=== PATIENT | male | born 1935 | race Hispanic/Latino ===

== ENCOUNTER 2017-04-24 14:03 | Inpatient (IN) | payer MEDICARE, OTHER ==
[2017-04-24 14:04] VITALS: BMI 27.4
--- NOTE | 2017-04-24 14:45 | ED PDOC ---
Arrival/HPI - General Historian: Patient - History of Present Illness Time/Duration: Prior to Arrival, > week Symptom Onset: Gradual Symptom Course: Worsening Severity Level: Moderate Activities at Onset: Rest Context: Sitting - General Chief Complaint: Shortness Of Breath Time Seen by Provider: 04/24/17 14:12 - History of Present Illness Narrative History of Present Illness (Text): 04/24/17 14:40 This is a 81 yo male with past medical hx of MS, CVA, HLD presenting with chief complaint of shortness of breath. This has been going on for 2 weeks. It has been happening at rest. It has come on gradually. Pt sees Dr. Kraft as PMD. This is the first time he is seeking medical attention in the past 2 weeks. It was getting worse today so he decided to come in today. This has never happened before. Pt says he "cannot take a deep breath." Pt reports waking up in the middle of night gasping for air, as well as orthopnea. He uses 2 pillows behind his head at night. Denies trauma, fevers, chills, cough, chest pain, palpitations. Denies getting flu shot this year. Cannot say whether or not he has gotten pneumonia shot. Pt drove himself to the hospital. PMH: MS, CVA, HLD PSH: hernia, stent Allergies: NKDA FH: denies Home meds: isosorbide Social hx: current cigar smoker. former cigarette smoker. social drinker[place] Lives [place]. 04/24/17 15:10 (Saulo Rosen) Past Medical History - Provider Review Nursing Documentation Reviewed: Yes - Travel History Have you recently traveled outside [place] w/in the past 3 mons?: No - Infectious Disease Hx of Infectious Diseases: None - Cardiac Hx Cardiac Disorders: Yes Hx Hypertension: Yes Hx Pacemaker: No - Neurological Hx Dementia: Yes - Hematological/Oncological Hx Blood Transfusions: No Hx Blood Transfusion Reaction: No - Musculoskeletal/Rheumatological Hx Musculoskeletal Disorders: No - Gastrointestinal Hx Gastrointestinal Disorders: No - Genitourinary/Gynecological Hx Genitourinary Disorders: No - Psychiatric Hx Substance Use: No - Anesthesia Hx Anesthesia: Yes Hx Anesthesia Reactions: No Hx Malignant Hyperthermia: No Family/Social History - Physician Review Nursing Documentation Reviewed: Yes Family/Social History: No Known Family HX Smoking Status: Current Some Days Smoker Hx Alcohol Use: Yes (SOCIALLY) Hx Substance Use: No Hx Substance Use Treatment: No Allergies/Home Meds Allergies/Adverse Reactions: Allergies No Known Allergies Allergy (Verified 06/14/16 14:52) Home Medications: Home Meds Medication Instructions Recorded Confirmed Atorvastatin Calcium [Lipitor] 80 mg PO DAILY 11/24/11 04/24/17 Metoprolol Succinate 100 mg PO DAILY 11/24/11 04/24/17 Review of Systems - Review of Systems Constitutional: absent: Fevers, Night Sweats Eyes: absent: Vision Changes, Photophobia ENT: absent: Hearing Changes, TMJ Pain Respiratory: SOB. absent: Cough Cardiovascular: absent: Chest Pain, Palpitations Gastrointestinal: absent: Abdominal Pain, Stool Changes Genitourinary Male: absent: Dysuria, Frequency Musculoskeletal: absent: Arthralgias, Back Pain Skin: absent: Rash, Pruritis Neurological: absent: Headache, Dizziness Endocrine: absent: Diaphoresis, Polyuria Hemo/Lymphatic: absent: Adenopathy, Easy Bleeding Psychiatric: absent: Anxiety, Depression Physical Exam Appearance: Positive for: Uncomfortable Mental Status: Positive for: Alert and Oriented X 3 - Systems Exam Head: Present: Atraumatic, Normocephalic Pupils: Present: PERRL Extroacular Muscles: Present: EOMI Mouth: Present: Moist Mucous Membranes Respiratory/Chest: Present: Decreased Breath Sounds, Rales Cardiovascular: Present: Regular Rate and Rhythm, Normal S1, S2 Abdomen: Present: Normal Bowel Sounds. No: Tenderness, Peritoneal Signs Upper Extremity: Present: Normal Inspection. No: Cyanosis, Edema Lower Extremity: Present: Normal Inspection. No: Edema Neurological: Present: CN II-XII Intact, Speech Normal Skin: Present: Warm, Dry Psychiatric: Present: Alert, Oriented x 3, Normal Insight, Normal Concentration Vital Signs Temp Pulse Resp BP Pulse Ox 04/24/17 18:03 98.1 F 106 H 22 131/43 L 96 04/24/17 16:04 98.2 F 101 H 20 140/80 92 L 04/24/17 15:44 22 97 04/24/17 14:11 91 H 26 H 151/111 H 90 L Medical Decision Making ED Course and Treatment: I disc the case w Dr Espinosa who will admit. Disc results w the pt as well. (Iron Carrera) - Lab Interpretations Lab Results: 04/24/17 15:10 04/24/17 15:10 Lab Results 04/24/17 15:10: Sodium 140, Potassium 4.8, Chloride 102, Carbon Dioxide 26, Anion Gap 17, BUN 39 H, Creatinine 2.0 H, Est GFR ( Amer) 39, Est GFR ( Non-Af Amer) 32, Random Glucose 103, Calcium 9.6, Total Bilirubin 1.0, AST 38, ALT 21, Alkaline Phosphatase 105, Troponin I 2.90 H* D, NT-Pro-B Natriuret Pep 64971 H, Total Protein 8.1, Albumin 4.0, Globulin 4.0, Albumin/Globulin Ratio 1.0 L 04/24/17 15:10: WBC 9.8 D, RBC 4.97, Hgb 11.1 L, Hct 34.5 L, MCV 69.4 L, MCH 22.3 L, MCHC 32.2, RDW 18.5 H, Plt Count 183, Gran % 73.9 H, Lymph % (Auto) 18.4 L, [place] % (Auto) 6.5 H, Eos % (Auto) 0.7 L, Baso % (Auto) 0.5, Gran # 7.21 H, Lymph # 1.8, [place] # 0.6, Eos # 0.1, Baso # 0.05 - RAD Interpretation Radiology Orders: 04/24/17 14:35 CXR [CHEST PORTABLE] [RAD] Stat - Medication Orders Current Medication Orders: Albuterol/Ipratropium (Duoneb 3 Mg/0.5 Mg (3 Ml) Ud) 3 ml IH Q2H PRN PRN Reason: Shortness of Breath Aspirin (Ecotrin) 81 mg PO DAILY [facility] Atorvastatin Calcium (Lipitor) 80 mg PO HS ANOOP Last Admin: 04/24/17 22:00 Dose: 80 mg Clopidogrel Bisulfate (Plavix) 75 mg PO DAILY ANOOP Furosemide (Lasix) 40 mg IVP Q8 ANOOP Heparin Sodium/Sodium Chloride (Heparin 30258 Units/250ml 1/2 Normal Saline) 25 ,000 units in 250 mls @ 9.046 mls/hr IV .Q24H ANOOP; 12 UNITS/KG/HR PRN Reason: Protocol Last Titration: 04/25/17 07:07 Dose: 14 units/kg/hr, 10.554 mls/hr Titration Intervention Document 04/25/17 07:07 MS (Rec: 04/25/17 07:07 MS [id number]) Titration Intake Titration Intake 130 Cumulative Intake 130 Cumulative Intake (Rx) 130 Waste Amount 0 Container Volume 120 Titration Dosing Titration Dose 14 IV Rate 10.554 Intake/Decrease Increased Cumulative Dose 01446 Milrinone Lactate/Dextrose (Primacor 20mg/100ml D5w) 100 mls @ 7.889 mls/hr IV .[id number] PRN; Protocol; 0.375 MCG/KG/MIN PRN Reason: TITRATE PER MD ORDER Metoprolol Succinate (Toprol Xl) 100 mg PO DAILY ANOOP Last Admin: 04/25/17 10:14 Dose: 100 mg MAR Pulse and Blood Pressure Document 04/25/17 10:14 RDS (Rec: 04/25/17 10:14 RDS [id number]) Pulse Pulse Rate (60-90) 74 Blood Pressure Blood Pressure (100/60-150/90) 141/100 Discontinued Medications Aspirin (Aspirin) 325 mg PO STAT STA Stop: 04/24/17 15:03 Last Admin: 04/24/17 15:20 Dose: 325 mg Clopidogrel Bisulfate (Plavix) 300 mg PO STAT STA Stop: 04/25/17 10:30 Furosemide (Lasix) 40 mg IVP BID [facility] Heparin Sodium (Porcine) (Heparin) 4,000 units IV ONCE ONE PRN Reason: Protocol Stop: 04/24/17 16:18 Last Admin: 04/24/17 17:39 Dose: 4,000 units eMAR Start Stop Document 04/24/17 17:39 RG (Rec: 04/24/17 17:39 RG [id number]) Intravenous Solution Start Date 04/24/17 Start Time 17:39 End Date 04/24/17 End time 17:39 Total Infusion Time 0 Heparin Sodium (Porcine) (Heparin) 3,000 units IVP STAT STA PRN Reason: Protocol Stop: 04/25/17 07:06 Last Admin: 04/25/17 07:12 Dose: 3,000 units IVP Administration Document 04/25/17 07:12 MS (Rec: 04/25/17 07:12 MS [id number]) Charges for Administration # of IVP Administrations 1 Metoprolol Tartrate (Lopressor) 50 mg PO ONCE ONE Stop: 04/24/17 19:01 Last Admin: 04/24/17 19:00 Dose: 50 mg MAR Pulse and Blood Pressure Document 04/24/17 19:00 RT (Rec: 04/24/17 19:00 RT [id number]) Pulse Pulse Rate (60-90) 99 Blood Pressure Blood Pressure (100/60-150/90) 147/94 Disposition/Present on Arrival - Present on Arrival Any Indicators Present on Arrival: No History of DVT/PE: No History of Uncontrolled Diabetes: No Urinary Catheter: No History of Decub. Ulcer: No History Surgical Site Infection Following: None - Disposition Have Diagnosis and Disposition been Completed?: Yes Disposition Time: 17:00 Patient Plan: Admission - Disposition Diagnosis: NSTEMI (non-ST elevated myocardial infarction) Disposition: HOSPITALIZED Condition: STABLE
--- NOTE | 2017-04-24 15:34 | RAD ---
HISTORY: sob COMPARISON: 06/11/2016 FINDINGS: LUNGS: No active pulmonary disease. PLEURA: There is a small right pleural effusion. CARDIOVASCULAR: Mild cardiomegaly and aortic tortuosity OSSEOUS STRUCTURES: No significant abnormalities. VISUALIZED UPPER ABDOMEN: Normal. OTHER FINDINGS: None. IMPRESSION: Small right pleural effusion.
[2017-04-24 15:37] LABS: BASO # 0.05 K/mm3 (0.0-2.0); BASO % 0.5 % (0.0-3.0); EOS # 0.1 (0.0-0.7); EOS % 0.7 % (1.5-5.0); GRAN # 7.21 (1.4-6.5); GRAN % 73.9 % (50.0-68.0); HEMATOCRIT 34.5 % (42.0-52.0); LYMPH # 1.8 (1.2-3.4); LYMPH % 18.4 % (22.0-35.0); MEAN CELL VOLUME 69.4 fl (80.0-105.0); MEAN CORPUSCULAR HEMOGLOBIN 22.3 pg (25.0-35.0); MEAN CORPUSCULAR HGB CONC 32.2 g/dl (31.0-37.0); MONO # 0.6 (0.1-0.6); MONO % 6.5 % (1.0-6.0); PLATELET COUNT 183 10^3/uL (120.0-450.0); RED CELL DISTRIBUTION WIDTH 18.5 % (11.5-14.5); WHITE BLOOD COUNT 9.8 10^3/ul (4.5-11.0)
[2017-04-24 15:41] LABS: CALCIUM 9.6 mg/dL (8.4-10.5); POTASSIUM 4.8 mmol/L (3.6-5.0); TOTAL PROTEIN 8.1 g/dL (5.8-8.3)
[2017-04-24 16:24] LABS: TROPONIN I 2.9 ng/mL
[2017-04-24] MEDS ORDERED: Heparin 25,000units in D5W 25,000 UNITS/250 ML BAG IV SCH (16:30)
[2017-04-24] MEDS: Heparin25000 units/250ml 1/2NS 25,000 UNITS/250 ML BAG IV SCH (17:39)
[2017-04-25 06:42] LABS: HEMATOCRIT 36.2 % (42.0-52.0); MEAN CELL VOLUME 69.9 fl (80.0-105.0); MEAN CORPUSCULAR HGB CONC 31.5 g/dl (31.0-37.0); PLATELET COUNT 184 10^3/uL (120.0-450.0); RED CELL DISTRIBUTION WIDTH 18.7 % (11.5-14.5); WHITE BLOOD COUNT 8.4 10^3/ul (4.5-11.0)
[2017-04-25 07:05] LABS: TROPONIN I 2.44 ng/mL
[2017-04-25 07:09] LABS: CALCIUM 9.5 mg/dL (8.4-10.5); MAGNESIUM 2.3 mg/dL (1.7-2.2); PHOSPHOROUS 5.8 mg/dL (2.5-4.5); POTASSIUM 5.2 mmol/L (3.6-5.0); TOTAL PROTEIN 7.9 g/dL (5.8-8.3)
--- NOTE | 2017-04-25 07:40 | CARD ---
APPROVED REPORT EKG Measurement Heart [id number] P38 [id number] <Conclusion> Atrial flutter with variable AV block with premature ventricular or aberrantly conducted complexes Right bundle branch block Abnormal ECG
--- NOTE | 2017-04-25 07:41 | CARD ---
APPROVED REPORT EKG Measurement Heart [id number] 170P30 [id number] <Conclusion> Sinus tachycardia with frequent premature ventricular complexes Possible Left atrial enlargement Right bundle branch block T wave abnormality, consider inferolateral ischemia Abnormal ECG
[2017-04-25] MEDS ORDERED: Albuterol-Ipratrop 3 mg / 0.5 (3 ml) UD IH PRN (08:45)
[2017-04-25] MEDS: Metoprolol Succinate 50 mg XL Tab PO SCH (10:14)
[2017-04-25] MEDS ORDERED: Milrinone 20mg/100ml D5W 100 ML IV PRN (10:30)
[2017-04-25] MEDS: Milrinone 20mg/100ml D5W 100 ML IV PRN ×2 (11:33→23:39)
--- NOTE | 2017-04-25 12:35 | HP ---
HISTORY OF PRESENT ILLNESS: This is a 81-year-old male who is coming to the hospital with complaints of shortness of breath with exertion. The patient denies any headache or dizziness. He has a history of dyslipidemia. He has a history of coronary catheterization, hypertension, and CVA. He had a stent that was placed in the past. He says he has been having 2 weeks of shortness of breath. It has been getting worse, and at times, it is at rest. He says he has been using more pillows at night to try to help him sleep. He has paroxysmal nocturnal dyspnea. He has no fevers or chills. No nausea. No vomiting. No chest pain. No weakness in the arms or the legs. No dysuria or frequency. REVIEW OF SYSTEMS: All other review of symptoms are within normal limits except what was mentioned. ALLERGIES: HE HAS NO KNOWN DRUG ALLERGIES. HOME MEDICATIONS: Aspirin, Lipitor, isosorbide, and metoprolol. PAST MEDICAL HISTORY: Coronary artery disease with stenting, CVA, dyslipidemia, and SD. PAST SURGICAL HISTORY: Hernia repair. FAMILY HISTORY: Noncontributory. SOCIAL HISTORY: He is a former smoker, but does not smoke anymore. He drinks socially. He lives alone. Does have son and daughter, but they are not living locally. PHYSICAL EXAMINATION: VITAL SIGNS: Temperature is 97.7, pulse is 76, blood pressure 112/86, and respirations 22. Height is 5 feet 6 inches. Weight is 170 pounds. BMI is 27.4. GENERAL: The patient lying in bed, uncomfortable, and in no acute distress. HEENT: Atraumatic and normocephalic. Anicteric sclerae. Moist mucosa. [place] conjunctivae. No oral lesions. NECK: No JVD, anterior and posterior adenopathy, thyromegaly, or bruits. CARDIOVASCULAR: S1 and S2 regular. No murmur, rubs, or gallop. LUNGS: Clear to auscultation bilaterally. No wheezes, rales, or rhonchi. ABDOMEN: Bowel sounds are positive. Soft, nontender and nondistended. No hepatosplenomegaly. No rebound and no guarding. EXTREMITIES: No cyanosis, clubbing, or edema. NEUROLOGIC: No facial asymmetry. Tongue is midline. No uvula deviation. Power is 5/5 upper extremity and lower extremity. Sensation intact in upper extremity and lower extremity. PSYCHIATRIC: He is awake, alert and oriented x3. No anxiety or depression. He has normal affect. GENITOURINARY: No CVA tenderness. VASCULAR: 2+ pulses in the carotid pulses and pedal pulses. SKIN: No erythema or nodules. SPINE: Shows normal curvature. EXTREMITIES: No cyanosis and clubbing, no edema. LABORATORY DATA: White count of 9.8, hemoglobin is 11.1, and platelet count is 183. PTT is 61, repeat is 46. The patient's creatinine is 2.0, baseline is 1.3 in May 2016. ProBNP is 23,000 and LDL is 107. Chest x-ray done, showed small right pleural effusion. His EKG done, shows sinus tachycardia with PVCs, right bundle-branch block. ASSESSMENT: 1. Acute congestive heart failure, unknown type. 2. Coronary artery disease with stenting. 3. Dyslipidemia. 4. Hypertension. PLAN: The patient is currently comfortable. He is going to be admitted to the hospital. He has been started on IV diuretic therapy. He has an elevated troponin. He has been placed on aspirin. He is going to continue with the aspirin and metoprolol. I will get Dr. Perkins to see the patient. We will wait for the input. Echo has been ordered as well. Charnajit Espinosa MD
[2017-04-25] MEDS: Heparin25000 units/250ml 1/2NS 25,000 UNITS/250 ML BAG IV SCH (18:00)
--- NOTE | 2017-04-25 21:03 | CON ---
DATE: 04/25/2017 REASON FOR CONSULTATION AND FOLLOWUP: Shortness of breath, decompensated congestive heart failure, non-ST segment myocardial infarction, acute coronary syndrome. BRIEF CLINICAL HISTORY: A 81-year-old male with past medical history significant for coronary artery disease, CVA, hypertension, hyperlipidemia, coronary artery disease, stent in the past, came in with a 1-week history of a shortness of breath and he fell down backward, came to the emergency room and now the patient complains of shortness of breath, found to be elevated troponin and elevated BUN and creatinine. Denies any chest pain, but complains of shortness of breath, sitting in the chair, is too short of breath. PAST MEDICAL HISTORY: Past history significant for coronary artery disease, hypertension, hyperlipidemia, stent multiple years ago, noncompliance with the medications. Previous cardiac workup as follows, the patient had a stress test on 03/04/2015 and that shows probably abnormal myocardial perfusion study, ejection fraction 49%. The patient refused CAT in the past. CURRENT MEDICATIONS: The patient is on metoprolol succinate 100 mg, atorvastatin 80 mg daily, noncompliant patient. ALLERGIES: NO KNOWN DRUG ALLERGIES. REVIEW OF SYSTEMS: As per HPI. PHYSICAL EXAMINATION: As follows: VITAL SIGNS: Temperature afebrile, heart rate 74, blood pressure 112/86. HEENT: PERRLA intact. NECK: Supple. No carotid bruits or thyromegaly. CHEST: Clear to auscultation. HEART: S1 and S2 regular. ABDOMEN: Soft. EXTREMITIES: Clubbing and cyanosis negative. DIAGNOSTIC DATA: EKG shows normal sinus, right bundle-branch block, no acute ST-T changes noted. LABORATORY DATA: Blood workup as follows: WBC 8.4, hemoglobin 11.4, hematocrit 36.2, platelet count 184. Chemistry shows sodium 138, potassium 5.2, chloride of 45, carbon dioxide of 27, anion gap of 13, BUN 13, creatinine 2.8, 2.6, 2.9, 2.4. IMPRESSION: Acute kidney injury; chronic renal insufficiency; hypertension; hyperlipidemia; coronary artery disease, status post a stent; congestive heart failure; pulmonary edema; renal insufficiency; non-ST segment myocardial infarction; coronary artery disease. RECOMMENDATIONS: Start low dose of Primacor. Continue aggressive diuresis, aspirin, Plavix, treat his unstable angina. Lovenox one dose. If the renal function improves, possible cardiac catheterization tomorrow. Discussed with the patient. The patient will proceed for cardiac. Further recommendation as per hospital course. The patient is already on heparin. We will keep n.p.o. after midnight for possible cardiac catheterization tomorrow. If renal function remains stable, he will get echo to assist LV function. Further recommendation as per hospital course. We will follow with you. Mike Perkins MD
[2017-04-25 22:34] LABS: URINE BILIRUBIN NEGATIVE (NEGATIVE); URINE BLOOD NEGATIVE (NEGATIVE); URINE GLUCOSE (UA) NEGATIVE (NEGATIVE); URINE KETONE NEGATIVE (NEGATIVE); URINE LEUKOCYTE ESTERASE NEGATIVE Leu/uL (NEGATIVE); URINE PROTEIN NEGATIVE mg/dL (<30 mg/dL); URINE UROBILINOGEN 0.2 E.U./dL (<1 E.U./dL)
[2017-04-25 22:37] LABS: URINE APPEARANCE CLEAR (CLEAR); URINE COLOR YELLOW (YELLOW)
[2017-04-25 22:49] LABS: PH,URINE 5.5 (4.7-8.0)
[2017-04-26 08:02] LABS: TROPONIN I 1.55 ng/mL
[2017-04-26 08:15] LABS: ALB/GLOB RATIO 0.9 (1.1-1.8); BILIRUBIN,TOTAL 0.7 mg/dL (0.2-1.3); CALCIUM 8.9 mg/dL (8.4-10.5); POTASSIUM 3.4 mmol/L (3.6-5.0)
--- NOTE | 2017-04-26 09:06 | CARD ---
APPROVED REPORT EXAM: Two-dimensional and M-mode echocardiogram with Doppler and color Doppler. INDICATION NSTEMI, NEW ONSET CHF 2D DIMENSIONS Left Atrium (2D)5.0 (1.6-4.0cm)IVSd0.9 (0.7-1.1cm) LVDd6.0 (3.9-5.9cm)PWd1.0 (0.7-1.1cm) LVDs5.5 (2.5-4.0cm)FS (%) 9.8 % LVEF (%)21.0 (>50%) M-Mode DIMENSIONS Aortic Root3.60 (2.2-3.7cm)Aortic Cusp Exc.1.30 (1.5-2.0cm) Aortic Valve AoV Peak Qenykqxl977.0cm/sAoV VTI28.2cmAO Peak GR.8mmHg LVOT Peak Odwrkxkv85.2cm/sLVOT VTI14.70cmAO Mean GR.5mmHg Mitral Valve MV E Erkxqagq934.0cm/sMV A Tabkrjud23.8cm/sE/A ratio1.4 TDI Lateral E' Peak V6.14cm/sMedial E' Peak V7.41cm/sE/Lateral E'21.3 E/Medial E'17.7 Pulmonary Valve PV Peak Xzfxcvoa43.4cm/sPV Peak Grad.1mmHg Tricuspid Valve TR Peak Lbikmgsj001tx/sRAP SEBCLQHC55ddTyQQ Peak Gr.40mmHg [id number] LEFT VENTRICLE The Left Ventricle is mildly dilated. There is normal left ventricular wall thickness. Left ventricle systolic function is severely impaired. The Ejection Fraction is 20-25%. There is severe global hypokinesis. RIGHT VENTRICLE The right ventricle is normal size. ATRIA The left atrium is moderately dilated. The right atrium size is normal. The interatrial septum is intact with no evidence for an atrial septal defect. AORTIC VALVE The aortic valve is moderately calcified. There is trace aortic regurgitation. MITRAL VALVE The mitral valve is mildly thickened but opens well. Mitral annular calcification is moderate. Mitral regurgitation is mild to moderate. TRICUSPID VALVE The tricuspid valve is normal in structure. There is moderate tricuspid regurgitation. There is moderate-severe pulmonary hypertension. GREAT VESSELS The aortic root is normal in size. PERICARDIAL EFFUSION There is no pericardial effusion. <Conclusion> The Left Ventricle is mildly dilated. There is normal left ventricular wall thickness. Left ventricle systolic function is severely impaired. The Ejection Fraction is 20-25%. There is severe global hypokinesis. The aortic valve is moderately calcified. Aortic sclerosis vs. mild There is trace aortic regurgitation. Mitral regurgitation is mild to moderate. There is moderate tricuspid regurgitation. There is moderate-severe pulmonary hypertension.
[2017-04-26] MEDS: Metoprolol Succinate 50 mg XL Tab PO SCH (10:09)
[2017-04-26] MEDS ORDERED: Potassium Chloride 20 mEq ER Tab PO ONE (14:03)
[2017-04-26] MEDS: Milrinone 20mg/100ml D5W 100 ML IV PRN (14:40)
--- NOTE | 2017-04-26 16:16 | US ---
PROCEDURE: Ultrasound of the Kidneys HISTORY: ARF COMPARISON: 11/03/2016 TECHNIQUE: Grayscale imaging was performed. FINDINGS: RIGHT KIDNEY: Measures: 9.4 cm. Normal in size, contour and echogenicity. No stone, solid mass lesion or hydronephrosis visualized. There is a new 1.8 x 1.4 x 1.5 cm simple cyst in the upper lobes. There is interval mild decrease in size of known septated cyst in the lower pole which now measures 1.1 x 0.9 x 1.0 cm. LEFT KIDNEY: Measures: 11.4 cm. Normal in size, contour and echogenicity. No stone, solid mass lesion or hydronephrosis visualized. OTHER FINDINGS: None. IMPRESSION: No nephrolithiasis or hydronephrosis.
[2017-04-26] MEDS: Heparin25000 units/250ml 1/2NS 25,000 UNITS/250 ML BAG IV SCH (18:00)
--- NOTE | 2017-04-26 19:06 | PN ---
DATE: 04/26/2017 SUBJECTIVE: The patient has no complaints of any chest pain. He says he is breathing better, but does feel the short of breath after exertion. PHYSICAL EXAMINATION: VITAL SIGNS: Temperature is 98.1, pulse of 82, blood pressure is 115/70, respirations 20. GENERAL: The patient is lying in bed, flat, comfortable. HEENT: No oral lesion. Anicteric sclerae. Moist mucosa. NECK: No JVD, adenopathy, or thyromegaly. CARDIOVASCULAR: S1 and S2, regular. No murmurs, rubs, or gallops. LUNGS: Clear to auscultation bilaterally. No wheeze, rales, or rhonchi. ABDOMEN: Bowel sounds are positive, soft, nontender, and nondistended. EXTREMITIES: No cyanosis, clubbing or edema. LABORATORY DATA: White count of 8.4 and hemoglobin 11.4. Creatinine is 2.4. Echocardiogram done, shows LV is mildly dilated, EF is 20% to 25%. There is moderate calcified aortic sclerosis versus mild . There is moderate tricuspid regurgitation, gudvsmbz-wz-ahntuh pulmonary hypertension. ASSESSMENT: 1. Acute congestive heart failure secondary to systolic dysfunction with an ejection fraction of 20%to 25%. 2. Tricuspid regurgitation. 3. Pulmonary hypertension. 4. Coronary artery disease with stenting. 5. Dyslipidemia. 6. Hypertension. 7. Yhm-XO-dnlbheguu myocardial infarction. PLAN: The patient is currently comfortable. He says his breathing is better. He had a UA that shows no protein. The patient's lxtlcbd-qa-auqriwcstx ratio was done, proteinuria of 300 mg per day. He is going to continue on Aldactone for CHF. He is on heparin daily. The patient is on Lasix twice day. He is on Lipitor for dyslipidemia. He is also on milrinone. The patient is on metoprolol for his coronary artery disease as well as aspirin. I will get a renal ultrasound because the patient's creatinine is elevated. I suspect if he may have underlying chronic kidney disease, although his last creatinine in May of this year was 1.3. I will also get serology testing. Charanjit Espinosa MD
--- NOTE | 2017-04-26 21:20 | PN ---
DATE: 04/26/2017 REASON FOR CONSULTATION: Followup shortness of breath, decompensated congestive heart failure, non-ST segment myocardial infarction, acute coronary syndrome. SUBJECTIVE: The patient denies any chest pain, shortness of breath or any palpitation. Feels a lot better. Lying flat on the bed. Had a good diuresis almost 600 negative fluid balance. PHYSICAL EXAMINATION: VITAL SIGNS: Temperature afebrile, heart rate 82, blood pressure 115/70. HEENT: PERRLA. Extraocular muscles intact. NECK: Supple. No carotid bruit or thyromegaly. CHEST: Clear to auscultation. HEART: S1, S2 regular. ABDOMEN: Soft. EXTREMITIES: Clubbing and cyanosis negative. LABORATORY DATA: Blood workup as follows, WBC 8.4, hemoglobin 11.6, hematocrit 36.2, platelet count 184. Chemistry shows sodium 139, potassium 3.4, chloride 102, carbon dioxide 29, anion gap of 11, BUN 47, creatinine 2.4. Troponin trending down 1.55. The patient had echocardiography done yesterday read by Dr. Alexandre, shows ejection fraction of 25% while the patient is on Primacor 2 mcg, 20% to 25% severe global hypokinesis, aortic valve with moderately calcified, trace aortic regurgitation, yhgq-iy-rsjxepgo mitral regurgitation, moderate tricuspid regurgitation, RV systolic pressure of 50. IMPRESSION: Acute decompensated congestive heart failure, acute non-ST segment myocardial infarction, coronary artery disease, history of stent in the past, tobacco abuse, acute kidney injury, chronic renal insufficiency, hypokalemia. RECOMMENDATIONS: Continue diuresis. Cancel cardiac catheterization, to resume diet. Continue heparin. Continue Primacor. Cut down the Lasix to q.12. Follow the renal function, if the renal function remained stable, then we will cath tomorrow. Continue heparin. The patient is on heparin, we will discontinue heparin for 2 hours at 1:00 a.m. and possible cardiac catheterization tomorrow. If the renal function gets worse, we will hold the cardiac catheterization tomorrow, otherwise we will do the cardiac catheterization tomorrow. Thank you Dr. Espinosa for providing us the opportunity in taking care of the patient, Jaime Dudley. We will resume diet. Keep n.p.o. after 12 midnight. Mike Perkins MD cc: Dr. Espinosa.
[2017-04-27] MEDS: Milrinone 20mg/100ml D5W 100 ML IV PRN ×2 (03:52→19:26)
[2017-04-27 06:38] LABS: BASO # 0.05 K/mm3 (0.0-2.0); BASO % 0.8 % (0.0-3.0); EOS # 0.3 (0.0-0.7); EOS % 4.7 % (1.5-5.0); GRAN # 3.86 (1.4-6.5); HEMATOCRIT 32.5 % (42.0-52.0); LYMPH # 1.6 (1.2-3.4); LYMPH % 24.8 % (22.0-35.0); MEAN CELL VOLUME 70.3 fl (80.0-105.0); MEAN CORPUSCULAR HEMOGLOBIN 21.9 pg (25.0-35.0); MEAN CORPUSCULAR HGB CONC 31.1 g/dl (31.0-37.0); MONO # 0.6 (0.1-0.6); MONO % 8.7 % (1.0-6.0); PLATELET COUNT 195 10^3/uL (120.0-450.0); RED CELL DISTRIBUTION WIDTH 18.8 % (11.5-14.5); WHITE BLOOD COUNT 6.3 10^3/ul (4.5-11.0)
[2017-04-27] MEDS ORDERED: Phenylephrine 10 mg/ml Inj ONE (07:28)
[2017-04-27] MEDS ORDERED: Lidocaine 2% Inj (20ml) ONE (07:28)
[2017-04-27] MEDS ORDERED: Iodixanol 320 MG/ML 100 ML BOTTLE IV ONE (07:29)
[2017-04-27] MEDS ORDERED: Iodixanol 320 MG/ML 200 ML BOTTLE IV ONE (07:29)
[2017-04-27] MEDS ORDERED: Iohexol 350mgl/ml 50 ML ONE (07:29)
[2017-04-27] MEDS ORDERED: Sodium Bicarbonate (8.4%) 50 Meq Syringe ONE (07:33)
[2017-04-27 07:38] LABS: ALB/GLOB RATIO 0.9 (1.1-1.8); BILIRUBIN,TOTAL 0.5 mg/dL (0.2-1.3); CALCIUM 9.1 mg/dL (8.4-10.5); MAGNESIUM 1.8 mg/dL (1.7-2.2); PHOSPHOROUS 3.9 mg/dL (2.5-4.5); POTASSIUM 3.7 mmol/L (3.6-5.0); TOTAL PROTEIN 6.9 g/dL (5.8-8.3); URIC ACID 11.1 mg/dL (3.5-8.5)
[2017-04-27] MEDS ORDERED: Midazolam 2 MG/2 ML VIAL ONE (08:11)
[2017-04-27] MEDS ORDERED: Levalbuterol 0.63 MG/3 ML Inhal Soln UD IH PRN (08:56)
[2017-04-27] MEDS ORDERED: Sodium Bicarbonate 8.4% 130 MEQ in Dextrose 5% In Water 1,000 ML IV SCH (09:00)
--- NOTE | 2017-04-27 09:17 | CARD ---
APPROVED REPORT Procedure(s) performed: Abdominal aortogram HISTORY The patient is a 81 year-old male with a history of : Hsx of CAD, PAD, CKD S/p PTCA of coronaries and Right renal Stent active tobacco abuse admitted with NSTEMI and CHF. INDICATION The indication(s) include : non-STEMI . CASE TECHNIQUE The patient was brought electively to the Cardiac Catheterization Laboratory in a fasting state and was prepped and draped in a sterile manner. The right femoral groin was infiltrated with 2% Lidocaine subcutaneous anesthesia. A 23 cm long sheath placed sheath was inserted into the right femoral artery without difficulty. Coronary angiography was performed using coronary diagnostic catheters. Pre-demployment femoral angiogram was performed . Closure device was deployed with a 6 Fr Mynx without any complications. The patient tolerated the procedure well and there were no complications associated with the procedure. Conclusion Only Abdominal Aortogram done, Could not advane catheter above inferior Mesentric artery.Very tortous right femoral, right common Iliac and very tortous Abdomial Aorta like Cork Screw, Stent Noted in right renal artery.Procedure aborted, decided to treat medically, Only 20 cc contrast used. Recommendations Smoking Cessation Aggressive Medical TherapyCardiac Risk Reduction Program ASA and plavix for mandatory four weeks,preferably for extended period of time, followed by Baby ASa alone Nitrates, Beta blockers, Statin, Diuretics ,and Spironolactone, Continue Bicarb Drip for 6 hours, and Primacor for 24 hours. Monitor renal Fx closely. CC; Drs. Hanson/ Swapnil / Francisca.
[2017-04-27] MEDS: Metoprolol Succinate 50 mg XL Tab PO SCH (10:01)
[2017-04-27 12:49] LABS: VITAMIN D 25 OH TOTAL 22.1 NG/ML (30.0-100.0)
--- NOTE | 2017-04-27 13:24 | PN ---
DATE: 04/27/2017 REASON FOR CONSULTATION AND FOLLOWUP: Qxr-GG-aetdipc myocardial infarction, acute decompensated congestive heart failure, coronary artery disease, chronic renal insufficiency. SUBJECTIVE: The patient is a 81-year-old male. The patient denies any chest pain or shortness of breath. The patient was taken to the scientific laboratory supervisor, details as further in assessment portion. OBJECTIVE: GENERAL: Not in apparent distress. VITAL SIGNS: As follows: Temperature afebrile, heart rate 86, blood pressure 128/68. HEENT: PERRLA. Extraocular muscles intact. NECK: Supple. No carotid bruit or thyromegaly. CHEST: Clear to auscultation. HEART: S1, S2 regular. ABDOMEN: Soft. EXTREMITIES: Clubbing and cyanosis negative. LABORATORY DATA: Workup as follows: WBC 6.2, hemoglobin 10.1, hematocrit 32.5, platelet count 195. Chemistry shows sodium 130, potassium 3.7, chloride 101, carbon dioxide 30, anion gap of 11, BUN 44, and creatinine 2.3. IMPRESSION: Btf-OC-wemwogo myocardial infarction, coronary artery disease, history of stent, history of chronic renal insufficiency, history of stent in the left kidney, diabetes, hypertension, hyperlipidemia, active tobacco abuse. The patient had echocardiography done yesterday, read by Dr. Alexandre. There is ejection fraction of 25%. Aortic valve moderately calcified, trace aortic regurgitation, ssis-jd-cojndfvo mitral regurgitation, moderate tricuspid regurgitation, RV systolic pressure of 40. Today, creatinine was 2.3. The patient is on Primacor. The patient was taken to scientific laboratory supervisor. Right femoral access was obtained. Very torturous right femoral artery, long sheath was placed. Then, we decided to go above the renal artery because of very torturous aorta, multiple but cannot proceed further and so procedure was aborted at this time because 20 mL of contrast used. The patient has a baseline creatinine of 2.4. Decision was made to treat the patient medically as follow: 1. Complete cessation of smoking. 2. Aspirin and Plavix for 4 weeks, followed by baby aspirin alone for rest of the life, beta-maia, nitrates, and we will continue bicarb for 6 hours. Follow BUN and creatinine and continue Primacor for 24 hours. If the creatinine remain stable, possible discharge to home tomorrow. Thank you Dr. Kraft/Dr. Espinosa for providing us the opportunity in taking care of the patient. Mike Perkins MD cc: Dr. Francisca Kraft MD
--- NOTE | 2017-04-27 18:15 | PN ---
DATE: 04/27/2017 SUBJECTIVE: The patient has no complaints of any chest pain. No shortness of breath or headache. He states he is breathing better when he goes to the bathroom compare to when he came into hospital. PHYSICAL EXAMINATION: VITAL SIGNS: Temperature is 97.8, pulse is 73, blood pressure is 97/65, respirations 19. GENERAL: The patient is lying in bed, flat, comfortable. HEENT: No oral lesion. Anicteric sclerae. Moist mucosa. NECK: No JVD, adenopathy, or thyromegaly. CARDIOVASCULAR: S1 and S2, regular. No murmurs, rubs, or gallops. LUNGS: Clear to auscultation bilaterally. No wheeze, rales, or rhonchi. ABDOMEN: Bowel sounds are positive, soft, nontender and nondistended. EXTREMITIES: No cyanosis, clubbing or edema. LABORATORY DATA: White count of 6.3, hemoglobin of 10.1. Creatinine is 2.3. ASSESSMENT: 1. Acute congestive heart failure secondary to systolic dysfunction with an ejection fraction of 20% to 25%. 2. Tricuspid regurgitation. 3. Pulmonary hypertension. 4. Coronary artery disease with stenting. 5. Dyslipidemia. 6. Hypertension. 7. Jww-LH-zekuavtuw myocardial infarction. 8. Proteinuria of 300 mg per day. 9. Iron deficiency anemia. PLAN: The patient is going for cardiac cath today by Dr. Perkins. He is going to continue with aspirin. He is on isosorbide for his heart. He is on Plavix for his OK. The patient is on Lipitor for dyslipidemia. The patient is on Xopenex. He is going to continue with heart-healthy diet. I have ordered serology for elevation of his creatinine. The patient does have iron deficiency. The patient possibly will go to Transitional Care Unit once accepted. Charanjit Espinosa MD
[2017-04-28] MEDS: Milrinone 20mg/100ml D5W 100 ML IV PRN (06:02)
[2017-04-28 06:07] LABS: BASO # 0.05 K/mm3 (0.0-2.0); BASO % 0.7 % (0.0-3.0); EOS # 0.3 (0.0-0.7); EOS % 3.7 % (1.5-5.0); GRAN % 63.7 % (50.0-68.0); HEMATOCRIT 34.6 % (42.0-52.0); LYMPH # 1.6 (1.2-3.4); LYMPH % 21.5 % (22.0-35.0); MEAN CELL VOLUME 70.8 fl (80.0-105.0); MEAN CORPUSCULAR HEMOGLOBIN 22.3 pg (25.0-35.0); MEAN CORPUSCULAR HGB CONC 31.5 g/dl (31.0-37.0); MONO # 0.8 (0.1-0.6); MONO % 10.4 % (1.0-6.0); PLATELET COUNT 188 10^3/uL (120.0-450.0); RED CELL DISTRIBUTION WIDTH 19.1 % (11.5-14.5); WHITE BLOOD COUNT 7.2 10^3/ul (4.5-11.0)
[2017-04-28 06:11] LABS: TOTAL PROTEIN, SERUM 6.5 g/dL (6.1-8.1)
[2017-04-28 06:19] LABS: CALCIUM 9.4 mg/dL (8.4-10.5)
[2017-04-28] MEDS: Metoprolol Succinate 50 mg XL Tab PO SCH (09:48)
[2017-04-28 11:40] VITALS: O2SAT 96
[2017-04-28 12:16] VITALS: BP 145/87; RESP 20; TEMP 98.3
--- NOTE | 2017-04-28 14:47 | PN ---
DATE: 04/27/2017 REASON FOR CONSULTATION: Followup tnn-QU-mgwocrp myocardial infarction, acute decompensated congestive heart failure, coronary artery disease, renal insufficiency chronic, status post cardiac catheterization attempted, unable to because of that tortuosity of the aorta. SUBJECTIVE: The patient denies any chest pain, shortness of breath, or any palpitation. PHYSICAL EXAMINATION: GENERAL: Not in apparent distress. Lying flat in the bed. VITAL SIGNS: As follows, temperature afebrile, heart rate 77, blood pressure 102/67. HEENT: PERRLA. Extraocular muscles intact. NECK: Supple. No carotid bruits or thyromegaly. CHEST: Clear to auscultation. HEART: S1 and S2. Regular. ABDOMEN: Soft. EXTREMITIES: Clubbing and cyanosis negative. LABORATORY DATA: WBC 7.2, hemoglobin 10.9, hematocrit 34.6, platelet count 188. Chemistry shows sodium 140, potassium 4, chloride 96, carbon dioxide 37, anion gap of 11, BUN 37, creatinine 2. IMPRESSION: Non-ST segment myocardial infarction, chronic renal insufficiency, baseline creatinine 2.8, today creatinine is 2, cardiomyopathy, severe peripheral artery disease, active tobacco abuse, history of coronary artery disease. Cardiac catheterization attempted, unable take the catheter up from aorta because of tortuosity, only 20 mL of contrast used. Postprocedure, the patient remained on bicarb, now the creatinine improved. RECOMMENDATIONS: We will discontinue Primacor, change Lasix to p.o. from tomorrow and continue aspirin. Continue Plavix for 4 weeks. Continue spironolactone. Continue Lasix. Continue metoprolol. The patient is not on JENN inhibitor because of the renal insufficiency. The patient had echocardiography done day before yesterday that shows ejection fraction of 20-25%, kdxn-tl-tmbjrjzo mitral regurgitation, moderate tricuspid regurgitation, RV systolic pressure of 50. Read by Dr. Alexandre. PLAN: We will discontinue Primacor. Discontinue IV Lasix today's dose and continue baby aspirin 81 mg a day. Continue Plavix 75 mg for 4 weeks and baby aspirin alone. Continue isosorbide dinitrate. Continue spironolactone. Continue Lasix. Continue atorvastatin, possible discharge today. We will change Lasix to p.o. from today. Thank you Dr. Espinosa for providing us the opportunity in taking care of the patient, Jaime Dudley. Possible discharge to home today. Mike Perkins MD
[2017-04-28 15:06] VITALS: PULSE 89
[2017-04-28 16:04] LABS: CCP IGG <16 Units (<20)
--- NOTE | 2017-04-28 16:56 | DS ---
HISTORY OF PRESENT ILLNESS: The patient is a 81-year-old, seen and examined, sitting in recliner. He states he feels sleepy and he is tired. Denies any chest pain. Does complain of mild shortness of breath. No nausea or vomiting. No diarrhea. He had breakfast tolerated. No vomiting. PHYSICAL EXAMINATION: VITAL SIGNS: He is afebrile, pulse 87, respirations 20, and blood pressure 145/87. LUNGS: Bilateral fair airflow. Soft crackle at bases. HEART: S1 and S2 audible. ABDOMEN: Soft and nontender. No rebound, no guarding. NEUROLOGIC: He is awake, alert, and oriented. EXTREMITIES: Bilateral legs +1 edema. LABORATORY DATA: WBC 7.2, hemoglobin 10.9, hematocrit 34.6, and platelets 188. PTT 61. Chemistry: Sodium 140, potassium 4.0, chloride 96, CO2 37, BUN 37, and creatinine 2.0. Blood sugar of 104. His echocardiogram done on 04/25/2017, shows left ventricle mildly dilated, normal left ventricular wall thickness. Left ventricular systolic function is severely impaired with ejection fraction of 20% to 25%. ASSESSMENT: 1. Wbj-CF-pkvgpnkvw myocardial infarction. 2. Dilated cardiomyopathy. 3. Congestive heart failure, secondary to systolic dysfunction. 4. Pulmonary hypertension. 5. Coronary artery disease status post angioplasty. 6. Hyperlipidemia. 7. Iron deficiency anemia. 8. Deconditioning and difficulty walking. PLAN: The patient is currently on aspirin. He is on nitrates. He is receiving diuretic and statins. He is on Plavix 75 daily. The patient is being transferred to TCU where he will receive physical therapy and we will watch him closely. Willow Uribe MD
[2017-04-30 18:50] LABS: BETA 1 GLOBULIN 0.4 g/dL (0.4-0.6); BETA 2 GLOBULIN 0.5 g/dL (0.2-0.5); GAMMA GLOBULIN 1.3 g/dL (0.8-1.7)
== END 2017-04-28 15:32 | DRG 280 ==
LOC: ED 14:03 → ERH 15:20 → 2RSO 18:17
PROVIDERS: ADMIT Internal Medicine Nephrology; ATTEND Internal Medicine Nephrology
PROC: B4101ZZ Fluoroscopy of Abdominal Aorta using Low Osmolar Contrast (ICD-10-PCS; principal; 2017-04-27)
DX: I21.4 Non-ST elevation (NSTEMI) myocardial infarction (principal); I50.21 Acute systolic (congestive) heart failure; N17.9 Acute kidney failure, unspecified; E11.22 Type 2 diabetes mellitus with diabetic chronic kidney disease; E11.51 Type 2 diabetes mellitus with diabetic peripheral angiopathy without gangrene; D50.9 Iron deficiency anemia, unspecified; F17.290 Nicotine dependence, other tobacco product, uncomplicated; I42.0 Dilated cardiomyopathy; I13.0 Hypertensive heart and chronic kidney disease with heart failure and stage 1 through stage 4 chronic kidney disease, or unspecified chronic kidney disease; I25.10 Atherosclerotic heart disease of native coronary artery without angina pectoris; E78.5 Hyperlipidemia, unspecified; F03.90 Unspecified dementia, unspecified severity, without behavioral disturbance, psychotic disturbance, mood disturbance, and anxiety; I27.20 Pulmonary hypertension, unspecified; N18.9 Chronic kidney disease, unspecified; I25.2 Old myocardial infarction; Z79.899 Other long term (current) drug therapy; Z86.73 Personal history of transient ischemic attack (TIA), and cerebral infarction without residual deficits; Z91.14 Patient's other noncompliance with medication regimen; Z95.5 Presence of coronary angioplasty implant and graft; Z53.09 Procedure and treatment not carried out because of other contraindication; E87.6 Hypokalemia; I08.3 Combined rheumatic disorders of mitral, aortic and tricuspid valves

== ENCOUNTER 2017-04-28 15:39 | Inpatient (IN) | payer OTHER ==
[2017-04-28 15:53] VITALS: BMI 25.9
[2017-04-28] MEDS ORDERED: Levalbuterol 0.63 MG/3 ML Inhal Soln UD IH PRN (15:53)
[2017-04-28] MEDS ORDERED: Influenza Vaccine 60 mcg/0.5 mL SYR (4YR UP) IM ONE (17:29)
[2017-04-28] MEDS ORDERED: Pneumococcal 23-Valent Vaccine IM ONE (17:29)
[2017-04-29] MEDS: Metoprolol Succinate 100 mg XL Tab PO SCH (08:24)
[2017-04-29] MEDS ORDERED: Metoprolol Succinate 50 mg XL Tab PO SCH (10:00)
--- NOTE | 2017-04-29 23:09 | HP ---
HISTORY OF PRESENT ILLNESS: The patient is 81-year-old, seen and examined. Sitting in the chair and comfortable. The patient came to emergency room on 04/25/2017 with increasing shortness of breath, more so on exertion. Denies any chest pain. No nausea, vomiting, or palpitation. He does have history of hypertension and hyperlipidemia, coronary artery disease status post catheterization and angioplasty in the past. PAST MEDICAL HISTORY: Significant for hypertension, coronary artery disease and angioplasty and status post CVA in the past. ALLERGIES: HE IS NOT ALLERGIC TO ANY MEDICATIONS. MEDICATIONS: At home; he is on spironolactone 25 daily, metoprolol 100 mg daily, isosorbide 30 mg daily, Lasix 40 mg daily, Aricept 10 mg daily, Plavix 75 day, atorvastatin 80 mg daily and aspirin 81 daily. SOCIAL HISTORY: He used to be heavy smoker, but recently he smokes here and there. PHYSICAL EXAMINATION GENERAL: He is awake, alert, oriented, able to communicate, but he is forgetful. VITAL SIGNS: He is afebrile, pulse 87, respirations 18, and blood pressure 137/89. LUNGS: Bilateral fair airflow. No rhonchi or crackle. HEART: S1 and S2 audible. ABDOMEN: Soft and nontender. No rebound. No guarding. NEUROLOGIC: The patient is awake, alert, oriented, and communicative. ASSESSMENT: 1. Non-ST elevation myocardial infarction. 2. Renal insufficiency. 3. Ischemic cardiomyopathy. 4. Peripheral vascular disease. PLAN: We will continue the patient on current medication that includes spironolactone 25 daily, Aricept 10 mg daily, aspirin 81 daily, isosorbide 30 mg daily, Lasix 40 mg daily, Plavix 75 day, metoprolol 100 mg at breakfast time and Xopenex as needed. He will get physical therapy in TCU and Dr. Espinosa will follow up the patient. Willow Uribe MD
--- NOTE | 2017-04-30 01:31 | CON ---
DATE: 04/29/2017 CONSULT SERVICE: Cardiology. CONSULTING PHYSICIAN: Mike Perkins MD REASON FOR CONSULTATION: Continued care in the Transitional Care Unit, coronary artery disease, non-ST segment myocardial infarction, admitted to acute floor a week ago, now for continued care. BRIEF CLINICAL HISTORY: This is a 81-year-old male with active tobacco abuse, noncompliance with medication, admitted to acute floor, telemetry with acute decompensated congestive heart failure, non-ST segment myocardial infarction. After being stabilized, the patient underwent cardiac catheterization, which could not be completed because of severe tortuosity of the abdominal aorta precludes taking the catheter up. Medical treatment was recommended and the patient being treated medically. Now, the patient transferred to transitional care as a continued care. Denies any chest pain, shortness of breath, or any palpitations. PAST HISTORY: Significant for non-ST segment myocardial infarction, the patient admitted on 04/24/2017; history of prior stent in the past; history of severe PAD; history of recent echo on 04/25/2017 showed ejection fraction of 20%-25%, severe global hypokinesis, aortic valve is moderately calcified with mild aortic stenosis, trace aortic regurgitation, atbe-mh-cyszyohp mitral regurgitation, moderate tricuspid regurgitation, hmecktjb-cr-oorctx pulmonary hypertension, RV systolic pressure of 50; status post attempted cardiac catheterization on 04/27/2017 as above. SOCIAL HISTORY: Active tobacco abuse before coming to the hospital. Denies any history of alcohol abuse. CURRENT MEDICATIONS: Started on spironolactone 25 b.i.d., metoprolol succinate, isosorbide dinitrate 30, Lasix 40 once a day, Plavix 75 mg daily, aspirin 81 mg, atorvastatin. REVIEW OF SYSTEMS: As per HPI. PHYSICAL EXAMINATION: As follows: VITAL SIGNS: Temperature afebrile, heart rate 87, blood pressure 137/89. HEENT: PERRLA. Extraocular muscles intact. NECK: Supple. No carotid bruit or thyromegaly. CHEST: Clear to auscultation. HEART: S1 and S2 regular. ABDOMEN: Soft. EXTREMITIES: Clubbing and cyanosis negative. LABORATORY DATA: Blood workup as follows: WBC 7.8, hemoglobin 10.9, hematocrit 34.6, platelet count 188. Chemistry shows sodium 140, potassium 4, chloride 96, carbon dioxide 37, anion gap of 11, BUN 37, creatinine of 2. IMPRESSION: Chronic renal insufficiency with a baseline creatinine between 2 to 2.3, diabetes, hypertension, hyperlipidemia, obesity, coronary artery disease, history of stent in the past, history of non-ST segment myocardial infarction, history of peripheral artery disease, unable to do cardiac cath, severely decreased left ventricular function and pulmonary hypertension. RECOMMENDATIONS: Continue digoxin, beta-maia, diuretics, baby aspirin and Plavix for 4 weeks mandatory, preferably for an extended period of the time, but mandatory for 4 weeks, then baby aspirin alone. Continue atorvastatin. Continue Imdur, nitrates and beta-maia. The patient is not on JENN inhibitor because of the renal insufficiency. Follow up MUGA scan in 3-6 months. If still EF remains below 35%, consider AICD. Thank you for providing us the opportunity in taking care of the patient, Jaime Dudley. We will repeat the blood workup in the morning. Mike Perkins MD cc: MD Sathya De Jesus MD
[2017-04-30 07:18] LABS: BASO # 0.02 K/mm3 (0.0-2.0); BASO % 0.3 % (0.0-3.0); EOS # 0.3 (0.0-0.7); EOS % 5.1 % (1.5-5.0); GRAN # 3.99 (1.4-6.5); GRAN % 63.5 % (50.0-68.0); HEMATOCRIT 33.5 % (42.0-52.0); LYMPH # 1.3 (1.2-3.4); LYMPH % 20.9 % (22.0-35.0); MEAN CELL VOLUME 71.4 fl (80.0-105.0); MEAN CORPUSCULAR HGB CONC 30.7 g/dl (31.0-37.0); MONO # 0.6 (0.1-0.6); MONO % 10.2 % (1.0-6.0); PLATELET COUNT 198 10^3/uL (120.0-450.0); RED CELL DISTRIBUTION WIDTH 19.1 % (11.5-14.5); WHITE BLOOD COUNT 6.3 10^3/ul (4.5-11.0)
[2017-04-30 07:59] LABS: BILIRUBIN,TOTAL 0.5 mg/dL (0.2-1.3); CALCIUM 9.2 mg/dL (8.4-10.5); POTASSIUM 4.2 mmol/L (3.6-5.0)
[2017-04-30] MEDS: Metoprolol Succinate 100 mg XL Tab PO SCH (08:29)
--- NOTE | 2017-04-30 09:52 | PN ---
DATE: 04/30/2017 SUBJECTIVE: The patient has no complaints of any chest pain or shortness of breath. He is ambulating well. He has no complaints of any headache or dizziness. PHYSICAL EXAMINATION: VITAL SIGNS: Temperature is 98, pulse is 70, blood pressure is 130/90, and respirations are 18. GENERAL: The patient is lying in bed, flat, comfortable. HEENT: No oral lesion. Anicteric sclerae. Moist mucosa. NECK: No JVD, adenopathy, or thyromegaly. CARDIOVASCULAR: S1 and S2, regular. No murmurs, rubs, or gallops. LUNGS: Clear to auscultation bilaterally. No wheeze, rales, or rhonchi. ABDOMEN: Bowel sounds are positive, soft, nontender and nondistended. EXTREMITIES: No cyanosis, clubbing or edema. LABORATORY DATA: White count of 6.3, hemoglobin of 10.3, and creatinine is 2.1. ASSESSMENT: 1. Acute congestive heart failure secondary to systolic dysfunction with ejection fraction of 20% to 25%. 2. Tricuspid regurgitation. 3. Pulmonary hypertension. 4. Coronary artery disease with stent. 5. Dyslipidemia. 6. Hypertension. 7. Non ST-elevation myocardial infarction. 8. Proteinuria 300 mg per day. 9. Iron deficiency anemia. 10. Chronic kidney disease, stage III. 11. Chronic anemia secondary to iron deficiency. PLAN: The patient is currently comfortable with getting physical therapy on the Transitional Care Unit. We will start the patient on an JENN inhibitor for the CKD and the CHF. The patient may need AICD. The patient will also need to continue with the Plavix. The patient is on Aricept and he is going to continue with aspirin. The patient is on Lipitor for dyslipidemia and he is on metoprolol. The patient states he is feeling better and breathing better. We will also place the patient on iron to help with his iron deficiency. He is able to tolerate his diet. He also has an elevated uric acid. We will place him on low dose of allopurinol. His vitamin D level is low, I will place him on calcium and vitamin D. He had an RPR that was negative. 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 His immunofluorescence and serum protein electrophoresis is pending. Charanjit Espinosa MD [facility] # [id number]
[2017-04-30] MEDS: Cholecalciferol 400 Intl Units Tab PO SCH (10:42)
--- NOTE | 2017-04-30 18:35 | PN ---
DATE: 04/30/2017 LOCATION: The patient is in room 314, bed 1. REASON FOR CONSULTATION: Coronary artery disease, non-ST segment elevation myocardial infarction, status post attempted cardiac catheterization, deconditioning. SUBJECTIVE: The patient is lying flat in bed without chest pain, shortness of breath, or palpitation. PHYSICAL EXAMINATION: VITAL SIGNS: Blood pressure 101/67, respirations 18, pulse 70, and temperature 98.0. HEENT: Head is normocephalic. Eyes; pupils are normal. Conjunctivae slightly pale. NECK: JVP is low. Carotids are equal. THORAX: AP diameter normal. LUNGS: Clear. CARDIOVASCULAR: S1 and S2. ABDOMEN: Soft. No tenderness. No organomegaly. Bowel sounds normal. EXTREMITIES: No clubbing. No cyanosis. LABORATORY DATA: WBC 6.3, hemoglobin 10.3, hematocrit 33.5, and platelets 198. Sodium 137, potassium 4.2, BUN 40, creatinine 2.1. Calcium, phosphorus, magnesium, AST, ALT, total protein, and hemoglobin normal. The patient was taken to the cardiac roofing laborer and tried to do cardiac catheterization. We could not view the coronary because of the patient's abdominal aorta very tortuous and wire and catheter kept coiling in the abdominal aorta, so it was hard to treat the patient medically. DIAGNOSES: Non-ST segment elevation myocardial infarction, prior history of stent in the past, history of severe peripheral vascular disease. Recent echo on 04/25/2017 showed ejection fraction 20-25%, severe global hypokinesis, aortic valve is moderately calcified and mild aortic stenosis, trace aortic regurgitation, fsvc-pr-rsomador mitral regurgitation, moderate tricuspid regurgitation, tolcbiwa-ml-mgainy pulmonary hypertension, right ventricular systolic pressure 50 mmHg, status post attempted cardiac catheterization on 04/27/2017 and it was not possible to view the coronary artery because of the patient has very tortuous aorta and wire and catheter kept coiling in the aorta, so it was decided to treat medically. PLAN: We will continue digoxin, beta-maia, diuretics, baby aspirin, and Plavix. Plavix at least four weeks mandatory, should be used for extended period of time, continue because we are going to do catheterization and we should continue aspirin and Plavix. Continue atorvastatin, Imdur, nitrate. The patient is not on JENN inhibitor because of renal insufficiency. The patient should have MUGA scan in 3 to 6 months to evaluate his ejection fraction, if it is below 35%, I will consider AICD. In the meantime, the patient is very poor compliant patient, so we will continue to follow with you. Mike Hanson MD
[2017-05-01] MEDS: Metoprolol Succinate 100 mg XL Tab PO SCH (08:17)
[2017-05-01] MEDS: Cholecalciferol 400 Intl Units Tab PO SCH (10:36)
--- NOTE | 2017-05-01 16:00 | PN ---
DATE: REASON FOR CONSULTATION AND FOLLOWUP: Continuity of care in Transitional Care Unit, history of coronary artery disease, bjx-DD-pdhzrev myocardial infarction, attempted to cath. SUBJECTIVE: The patient denies any chest pain, shortness of breath or any palpitation. Feels a lot better. OBJECTIVE: GENERAL: Not in apparent distress. Lying flat on the bed. VITAL SIGNS: As follows, temperature afebrile, heart rate is 70, and blood pressure 117/61. HEENT: PERRLA. Extraocular muscles intact. NECK: Supple. No carotid bruits or thyromegaly. CHEST: Clear to auscultation. HEART: S1 and S2 regular. ABDOMEN: Soft. EXTREMITIES: Clubbing and cyanosis negative. LABORATORY DATA: WBC 6.3, hemoglobin 10.3, hematocrit 33.5, and platelet count 198. Chemistry shows sodium 137, potassium 4.2, chloride 98, carbon dioxide 30, anion gap of 12, BUN 40, and creatinine 2.1. IMPRESSION: Chronic renal insufficiency, coronary artery disease, cardiomyopathy ischemic, admitted with [id number]-[id number] myocardial infarction, severe peripheral artery disease, unable to do the catheterization. We will attempt to the catheter above the renal artery because of tortuosity of the vessels. A stent noted in left renal was widely patent. RECOMMENDATIONS: Aggressive medical treatment. Continue digoxin, beta-maia, diuretics, aspirin, and Plavix for 4 weeks mandatory followed by baby aspirin alone if the patient can tolerate aspirin and Plavix for an extended period of the time. The patient is not on JENN inhibitor because of the renal insufficiency. We will follow the MUGA scan in 3-6 months. If EF remain below the 35%, consider AICD. Mike Perkins MD
[2017-05-02] MEDS: Metoprolol Succinate 100 mg XL Tab PO SCH (08:26)
[2017-05-02] MEDS: Cholecalciferol 400 Intl Units Tab PO SCH (10:07)
--- NOTE | 2017-05-02 11:10 | PN ---
DATE: 05/02/2017 SUBJECTIVE: The patient has no complaints of any chest pain or shortness of breath. No headaches or dizziness. PHYSICAL EXAMINATION: VITAL SIGNS: Temperature is 97.4, pulse is 58, blood pressure is 103/69, respirations 18. GENERAL: The patient is lying in bed, flat, comfortable. HEENT: No oral lesion. Anicteric sclerae. Moist mucosa. NECK: No JVD, adenopathy, or thyromegaly. CARDIOVASCULAR: S1 and S2, regular. No murmurs, rubs, or gallops. LUNGS: Clear to auscultation bilaterally. No wheeze, rales, or rhonchi. ABDOMEN: Bowel sounds are positive. Soft, nontender and nondistended. EXTREMITIES: No cyanosis, clubbing or edema. LABORATORY DATA: White count of 6.3, hemoglobin of 10.3. Creatinine is 2.1. ASSESSMENT: 1. Acute congestive heart failure secondary to systolic dysfunction with ejection fraction of 20-25%, improving. 2. Tricuspid regurgitation. 3. Pulmonary hypertension. 4. Coronary artery disease with stenting. 5. Dyslipidemia. 6. Hypertension. 7. Non-ST elevation myocardial infarction. 8. Proteinuria 300 mg per day. 9. Iron deficiency anemia. 10. Chronic kidney disease, stage III. 11. Vitamin D deficiency. PLAN: The patient is on Aricept for his dementia. He is going to continue with ramipril for his CHF. The patient is on Aldactone for his CHF as well. He is going to continue with Lasix daily. He is on Lipitor for dyslipidemia. The patient is going to be on Plavix for his underlying coronary artery disease. He is also on metoprolol. He is receiving vitamin D because of his vitamin D deficiency. The patient is currently comfortable. He is getting physical therapy. He had RPR done to rule out syphilis which is negative. The patient also had SPEP and immunofluorescence done, did not show a M spike. The patient's serology has been negative thus far. HALI is negative. The patient is on iron for his iron deficiency. He is improving with physical therapy. Charanjit Espinosa MD [facility] # [id number]
--- NOTE | 2017-05-02 14:11 | PN ---
DATE: 05/02/2017 LOCATION: The patient is in room 314, bed 1. REASON FOR CONSULTATION AND FOLLOW UP: Coronary artery disease and oim-WI-uekltgd elevation myocardial infarction, status post attempted cardiac catheterization. SUBJECTIVE: The patient is sitting in chair without any chest pain, shortness of breath or palpitation. He states when he walks, he gets shortness of breath without any chest pain. PHYSICAL EXAMINATION: VITAL SIGNS: Blood pressure 132/80, respirations 20, pulse 62, and temperature 97.3. HEENT: Head is normocephalic. Eyes; pupils are normal. Conjunctivae slightly pale. NECK: JVP is low. Carotids are equal. THORAX: AP diameter normal. LUNGS: Clear. CARDIOVASCULAR: S1 and S2. ABDOMEN: Soft. No tenderness. No organomegaly. Bowel sounds normal. EXTREMITIES: No clubbing. No cyanosis. LABORATORY DATA: WBC 6.3, hemoglobin 10.3, hematocrit 33.5, and platelets 198. Sodium 137, potassium 4.2, BUN 40, and creatinine 2.1. Phosphorus, magnesium, total bilirubin, AST, and ALT normal. Total protein and albumin normal. DIAGNOSES: Chronic renal insufficiency, coronary artery disease, and cardiomyopathy, ischemic, admitted with ojt-ZV-tmcinws elevation myopathy infarction and history of peripheral vascular disease. Cardiac catheter was attempted, but due to tortuosity of the aorta, the catheterization wire was not able to cross the abdominal aortic part. It kept coiling up. RECOMMENDATIONS: The plan is since we could not do the cath as we attempted above, we decided to treat the patient medically. We will continue ramipril 2 mg p.o. daily, spironolactone 25 mg p.o. daily, aspirin 81 mg daily, ferrous sulfate 324 b.i.d., isosorbide mononitrate 30 daily, Lasix 40 daily, Lipitor 80 daily, Plavix 75 daily, Toprol-XL 100 mg daily, and Xopenex hand nebulizer therapy. Suggest to repeat MUGA scan in 3 to 6 months and if ejection fraction is still 35 or below, we will recommend then AICD insertion. Mike Hanson MD
[2017-05-03 06:36] VITALS: RESP 18
[2017-05-03] MEDS: Cholecalciferol 400 Intl Units Tab PO SCH (09:09)
[2017-05-03] MEDS: Metoprolol Succinate 100 mg XL Tab PO SCH (09:11)
--- NOTE | 2017-05-03 23:27 | PN ---
DATE: 05/03/2017 LOCATION: The patient is in room number 314, bed 1. REASON FOR CONSULTATION AND FOLLOW UP: Coronary artery disease and fwx-RB-zasrcrf elevation myocardial infarction, attempted post catheterization. SUBJECTIVE: The patient lying flat in bed. No chest pain. No shortness of breath. No palpitation. PHYSICAL EXAMINATION: VITAL SIGNS: Blood pressure is 126/72, respirations are 18, pulse is 72, and temperature is 98.3. HEENT: Head is normocephalic. Eyes; pupils are normal. Conjunctivae slightly pale. NECK: JVP is low. Carotids are equal. THORAX: AP diameter normal. LUNGS: Clear. CARDIOVASCULAR: S1 and S2. ABDOMEN: Soft. No tenderness. No organomegaly. Bowel sounds normal. EXTREMITIES: No clubbing. No cyanosis. LABORATORY DATA: WBC of 6.3, hemoglobin of 10.3, hematocrit of 33.5, and platelets of 198. Sodium of 137, potassium of 4.2, BUN of 40, and creatinine of 2.1. Sugar of 79. AST, ALT, magnesium, and bilirubin are normal. DIAGNOSES: Chronic renal insufficiency, coronary artery disease and cardiomyopathy, ischemic, admitted with kid-YJ-cdvhses elevation myopathy infarction and history of peripheral vascular disease. PLAN: Cardiac catheterization was attempted, but abdominal aorta is very tortous and catheter was not able to cross the abdominal aortic because it kept coiling up in the tortuous aorta. So, the plan is to treat the patient medically and the patient is asymptomatic from cardiac point of view. We will continue spironolactone 25 daily, Altace 2.5 mg daily, aspirin 81 mg daily, ferrous sulfate 324 mg b.i.d., isosorbide mononitrate 30 daily, furosemide 40 daily, Lipitor 80 daily, Plavix 75 daily, Toprol-XL 100 mg daily, and Xopenex hand nebulizer therapy and we will follow with you. Mike Hanson MD
--- NOTE | 2017-05-04 08:45 | PN ---
DATE: 05/04/2017 SUBJECTIVE: The patient has no complaints of any chest pain or shortness of breath. No headaches or dizziness. He says he is feeling better, and walking better. PHYSICAL EXAMINATION VITAL SIGNS: Temperature is 97.8, pulse of 52, blood pressure of 130/73 and respirations of 18. GENERAL: The patient is lying in bed, flat, comfortable. HEENT: No oral lesion. Anicteric sclerae. Moist mucosa. NECK: No JVD, adenopathy, or thyromegaly. CARDIOVASCULAR: S1 and S2, regular. No murmurs, rubs, or gallops. LUNGS: Clear to auscultation bilaterally. No wheeze, rales, or rhonchi. ABDOMEN: Bowel sounds are positive, soft, nontender and nondistended. EXTREMITIES: No cyanosis, clubbing or edema. LABORATORY DATA: White count is 6.3 and hemoglobin is 10.3. Creatinine is 2.1. ASSESSMENT: 1. Acute congestive heart failures secondary to systolic dysfunction with an ejection fraction of 20% to 25%. 2. Tricuspid regurgitation. 3. Pulmonary hypertension. 4. Coronary artery disease with stenting. 5. Dyslipidemia. 6. Hypertension. 7. Non-ST elevation myocardial infarction. 8. Proteinuria, 300 mg per day. 9. Iron deficiency anemia. 10. Chronic kidney disease, stage III. 11. Vitamin D deficiency. PLAN: The patient is on Aricept for dementia. The patient is on iron for iron deficiency. He is going to continue with the Lasix daily. The patient is on Lipitor for dyslipidemia. The patient is on Plavix for his non-ST elevation ND. I did write a prescription for the patient's Plavix for one more month as per Cardiology. I also spoke with the patient's son to update him about the importance of taking Plavix for at least one more month. I did write a prescription. The patient is to be discharged on 05/06/2017. I did speak to the staff and the patient is setup to be discharged that day. Charanjit Espinosa MD
[2017-05-04] MEDS: Cholecalciferol 400 Intl Units Tab PO SCH (09:44)
[2017-05-04] MEDS: Metoprolol Succinate 100 mg XL Tab PO SCH (09:49)
--- NOTE | 2017-05-04 13:54 | PN ---
DATE: 05/04/2017 LOCATION: The patient is in room 314, bed 1. REASON FOR CONSULTATION AND FOLLOWUP: Coronary artery disease, msf-FH-npnblft elevation myocardial infarction, attempted post cardiac catheterization status. SUBJECTIVE: The patient is sitting in chair without any chest pain, shortness of breath, or palpitation. He states his breathing is getting better. He will also continue to get physical therapy. PHYSICAL EXAMINATION: VITAL SIGNS: Blood pressure 108/68, respirations 18, pulse 59, temperature 98.1. HEENT: Head is normocephalic. Eyes; pupils are normal. Conjunctivae slightly pale. NECK: JVP is low. Carotids are equal. THORAX: AP diameter normal. LUNGS: Clear. CARDIOVASCULAR: S1 and S2. ABDOMEN: Soft and nontender. No organomegaly. Bowel sounds normal. EXTREMITIES: No clubbing. No cyanosis. LABORATORY DATA: WBC 6.3, hemoglobin 10.3, hematocrit 33.5, and platelets 198. Sodium 137, potassium 4.2, BUN 40, creatinine 2.1, random glucose 79. Calcium, phosphorus, magnesium are normal. Total protein and albumin are normal. DIAGNOSES: Chronic renal insufficiency, coronary artery disease, cardiomyopathy, ischemic type, admitted with ieg-OP-vprybjv elevation myocardial infarction, history of peripheral vascular disease. Cardiac catheterization attempted, but the patient has very tortous abdominal aorta and wire and catheter kept coiling in the abdominal aorta. So it was decided the patient not having chest pain to treat it medically. PLAN: As explained above. We have not decided to treat the patient medically because cardiac catheterization could be done due to tortous, abdominal aorta and the patient is asymptomatic from cardiac point of view and we have him on medication, spironolactone 25 daily, ramipril 2.5 mg daily, Aricept 10 mg at bedtime, aspirin 81 mg daily, ferrous sulfate 324 mg b.i.d., isosorbide mononitrate 30 mg daily, furosemide 40 mg daily, Lipitor 80 mg daily, Plavix 75 mg daily, metoprolol succinate which is Toprol-XL 100 mg p.o. daily, Xopenex p.r.n. We will continue present therapy, and we will continue physical therapy. We will follow with you. Mike Hasnon MD
[2017-05-05 06:15] VITALS: PULSE 74; TEMP 97.8; O2SAT 98
[2017-05-05] MEDS: Metoprolol Succinate 100 mg XL Tab PO SCH (08:14)
[2017-05-05] MEDS: Cholecalciferol 400 Intl Units Tab PO SCH (11:14)
--- NOTE | 2017-05-05 22:06 | PN ---
DATE: 05/05/2017 LOCATION: The patient is in room 314, bed #1. REASON FOR CONSULTATION AND FOLLOWUP: Coronary artery disease, non-ST segment elevation myocardial infarction, status post attempted cardiac catheterization. SUBJECTIVE: The patient is lying flat in bed without any chest pain, shortness of breath or palpitation. Getting physical therapy without any chest pain or palpitation and his breathing is also getting better. PHYSICAL EXAMINATION VITAL SIGNS: Blood pressure 100/67, respirations 18, pulse 74 and temperature 97.8. HEENT: Head is normocephalic. Eyes; pupils are normal. Conjunctivae slightly pale. NECK: JVP is low. Carotid are equal. THORAX: AP diameter normal. LUNGS: Clear. CARDIOVASCULAR: S1 and S2. ABDOMEN: Soft. No tenderness. No organomegaly. Bowel sounds normal. EXTREMITIES: No clubbing. No cyanosis. LABORATORY DATA: Was done on 04/30/2017 and they were reported in our previous progress note. DIAGNOSES: Chronic renal insufficiency; coronary artery disease; cardiomyopathy, ischemic type; admitted with ehz-AN-svzfksl elevation myocardial infarction and history of peripheral vascular disease. PLAN: We attempted cardiac catheterization, but the patient has very tortous abdominal aorta so, catheter and wire kept coiling up in the abdominal aorta. In the meantime, the patient was asymptomatic so we will further treat medically and continue physical therapy, which the patient is going through therapy without any cardiac symptoms or any anginal symptoms. The patient is on 25 mg daily, ramipril 2.5 mg daily, aspirin 81 mg daily, ferrous sulfate 324 p.o. b.i.d., isosorbide mononitrate 30 mg daily, furosemide 40 p.o. daily, Lipitor 80 daily, Plavix 75 daily, Toprol-XL 100 mg daily, Xopenex hand nebulizer therapy. We will continue current therapy. Mike Hanson MD
--- NOTE | 2017-05-06 03:18 | PN ---
DATE: HISTORY OF PRESENT ILLNESS: The patient is a 81-year-old, seen and examined, sitting in chair. Seems to be comfortable. No complain of chest pain. No shortness of breath. Eating and tolerating well. Ambulating. PHYSICAL EXAMINATION: VITAL SIGNS: He is afebrile, pulse 74, respirations 18, and blood pressure 141/86. LUNGS: Bilateral fair airflow. No rhonchi or crackle. HEART: S1 and S2 audible. ABDOMEN: Soft and nontender. No rebound, no guarding. NEUROLOGIC: He is awake, alert, and oriented. Able to communicate and able to take a . EXTREMITIES: Bilateral legs +1 edema. ASSESSMENT: 1. Status post udp-LU-njfsizmxi myocardial infarction. 2. Acute and chronic renal insufficiency improving. 3. Coronary artery disease. 4. Cardiomyopathy. 5. History of severe peripheral vascular disease. 6. Tricuspid regurgitation. 7. Iron deficiency anemia. PLAN: Currently, the patient is on ramipril. He is on Aricept. We will continue aspirin, iron supplementation, isosorbide. The patient is on Lasix 40 mg daily. He is on statin and Plavix. He is clinically stable. Planning for discharge. Willow Uribe MD
[2017-05-06] MEDS: Metoprolol Succinate 100 mg XL Tab PO SCH (08:32)
[2017-05-06] MEDS: Cholecalciferol 400 Intl Units Tab PO SCH (10:41)
[2017-05-06 10:43] VITALS: BP 112/74
--- NOTE | 2017-05-06 22:25 | PN ---
DATE: 05/06/2017 LOCATION: The patient is in room 314, bed #1. REASON FOR CONSULTATION: Followup coronary artery disease, env-VI-wmzrhrg elevation myocardial infarction status post attempted cardiac catheterization. SUBJECTIVE: Patient denies any chest pain, shortness of breath, or palpitation. The patient continues to get physical therapy without any cardiac symptoms. PHYSICAL EXAMINATION: VITAL SIGNS: Blood pressure 112/74, respirations 18, pulse 74, temperature 97.8. HEENT: Head: Normocephalic. Eyes: Pupils are normal. Conjunctivae slightly pale. NECK: JVP is low. Carotid are equal. THORAX: AP diameter normal. LUNGS: Clear. CARDIOVASCULAR: S1 and S2. ABDOMEN: Soft. No tenderness. No organomegaly. Bowel sounds normal. EXTREMITIES: No clubbing. No cyanosis. LABORATORY DATA: Was done on 04/30/2017; they were mentioned in our previous notes. DIAGNOSES: Chronic renal insufficiency; coronary artery disease; cardiomyopathy, ischemic type; admitted with tgh-VL-halgkav elevation myocardial infarction; and history of peripheral vascular disease. PLAN: Patient was attempted cardiac catheterization, but he has very tortous abdominal aorta, so wire and catheter kept coiling up in the abdominal aorta, so catheterization could not be completed; however, patient was asymptomatic, so it was decided to treat him medically and the patient to continue ramipril 2.5 mg daily, spironolactone 25 daily, aspirin 81 mg daily, ferrous sulfate 324 b.i.d., isosorbide mononitrate 30 daily, furosemide 40 daily, Lipitor 80 daily, Plavix 75 daily, metoprolol succinate 100 mg daily. We will continue present therapy. Mike Hanson MD
--- NOTE | 2017-05-07 12:24 | DS ---
HISTORY OF PRESENT ILLNESS: The patient is a 81 years old, seen and examined, anxious to go home, doing well, eating and tolerating. No nausea or vomiting. No diarrhea. The patient came in and had non ST elevation ME, had angioplasty done, transferred to TCU for rehab and gait training. Doing well, being discharged home today. PHYSICAL EXAMINATION: GENERAL: Awake, alert and oriented. Communicative. VITAL SIGNS: He is afebrile, pulse 80, respirations 18, blood pressure 112/74. LUNGS: Bilateral good airflow. No rhonchi or crackle. HEART: S1, S2 audible. ABDOMEN: Soft, nontender. No rebound, no guarding. EXTREMITIES: Bilateral legs, +1 edema. LABORATORY DATA: Blood sugar is 74. ASSESSMENT AND PLAN: 1. Non-ST elevation myocardial infarction. 2. Status post angioplasty. 3. Congestive heart failure, acute on chronic, systolic. 4. Renal insufficiency, improving. 5. Cardiomyopathy. 6. Severe peripheral vascular disease. 7. Iron deficiency anemia. PLAN: Patient is being discharged home today. He is being discharged on spironolactone 25 daily, Zoloft 25 daily, metoprolol 100 mg daily, isosorbide 30 mg daily, Lasix 40 mg daily, Aricept 10 mg daily, Plavix 75 daily, atorvastatin 80 mg daily, ramipril 2.5 daily, and ferrous sulfate. He will follow up with Dr. Ritchie as outpatient. He is advised to have 2 g sodium . Willow Uribe MD
== END 2017-05-06 19:48 | disposition home or self-care (01) | DRG 280 ==
LOC: TRCU 15:39
PROVIDERS: ADMIT Internal Medicine Nephrology; ATTEND Internal Medicine Nephrology
PROC: F07Z9ZZ Gait Training/Functional Ambulation Treatment (ICD-10-PCS; principal; 2017-04-30)
PROC: F07Z5ZZ Bed Mobility Treatment (ICD-10-PCS; 2017-04-30)
PROC: F07Z8ZZ Transfer Training Treatment (ICD-10-PCS; 2017-04-30)
PROC: F07L6ZZ Therapeutic Exercise Treatment of Musculoskeletal System - Lower Back / Lower Extremity (ICD-10-PCS; 2017-05-01)
PROC: F08Z1ZZ Dressing Techniques Treatment (ICD-10-PCS; 2017-05-02)
PROC: F08Z2ZZ Grooming/Personal Hygiene Treatment (ICD-10-PCS; 2017-05-02)
DX: I21.4 Non-ST elevation (NSTEMI) myocardial infarction (principal); I50.23 Acute on chronic systolic (congestive) heart failure; I13.0 Hypertensive heart and chronic kidney disease with heart failure and stage 1 through stage 4 chronic kidney disease, or unspecified chronic kidney disease; E11.22 Type 2 diabetes mellitus with diabetic chronic kidney disease; N18.3 Chronic kidney disease, stage 3 (moderate); E11.51 Type 2 diabetes mellitus with diabetic peripheral angiopathy without gangrene; I27.20 Pulmonary hypertension, unspecified; I08.3 Combined rheumatic disorders of mitral, aortic and tricuspid valves; F17.200 Nicotine dependence, unspecified, uncomplicated; D50.9 Iron deficiency anemia, unspecified; I25.10 Atherosclerotic heart disease of native coronary artery without angina pectoris; I25.5 Ischemic cardiomyopathy; E55.9 Vitamin D deficiency, unspecified; F03.90 Unspecified dementia, unspecified severity, without behavioral disturbance, psychotic disturbance, mood disturbance, and anxiety; E78.5 Hyperlipidemia, unspecified; Z86.73 Personal history of transient ischemic attack (TIA), and cerebral infarction without residual deficits; Z95.5 Presence of coronary angioplasty implant and graft

== ENCOUNTER → 2017-08-27 | Emergency (ER) | payer MEDICARE ==
[~2017-08-27] MED LIST: Esmolol Hcl 2500mg/250ml NAC 250 ML IV SCH; Labetalol 5 mg/ml Inj 20ML IV STA; Morphine 4 mg/ml ISec IVP STA
--- NOTE | 2017-08-27 08:58 | ED PDOC ---
Arrival/HPI - General Time Seen by Provider: 08/27/17 08:40 Historian: Patient - History of Present Illness Narrative History of Present Illness (Text): 08/27/17 08:50 81 year old male, whose PMH includes CHF, hypertension, CVA, diabetes, cardiac catheterization, and coronary stent, who presents to the emergency department complaining of left sided chest pain that radiates to left side of his groin. Patient reports it has become gradually worse for a couple of days. Patient denies fevers, shortness of breath, headache, or other complaints. PMD: Dr. Kraft Physical Chemistry Professor: Dr. Perkins Time/Duration: < week Symptom Onset: Gradual Symptom Course: Worsening Context: Home Past Medical History - Provider Review Nursing Documentation Reviewed: Yes - Infectious Disease Hx of Infectious Diseases: None - Cardiac Hx Cardiac Disorders: Yes Hx Congestive Heart Failure: Yes Hx Hypertension: Yes - Pulmonary Hx Respiratory Disorders: No Hx Pneumonia: Yes - Neurological HX Cerebrovascular Accident: Yes - HEENT Hx HEENT Disorder: No (Reading glasses) - Renal Hx Renal Failure: Yes - Endocrine/Metabolic Hx Diabetes Mellitus Type 2: Yes - Hematological/Oncological Hx Blood Transfusions: No Hx Blood Transfusion Reaction: (NA) - Integumentary Hx Dermatological Disorder: No - Musculoskeletal/Rheumatological Hx Falls: Yes - Gastrointestinal Hx Gastrointestinal Disorders: No - Genitourinary/Gynecological Hx Genitourinary Disorders: No Hx Reproductive Disorders: No - Psychiatric Hx Substance Use: No - Surgical History Hx Cardiac Catheterization: Yes Hx Coronary Stent: Yes - Anesthesia Hx Anesthesia Reactions: No Hx Malignant Hyperthermia: No Family/Social History - Physician Review Nursing Documentation Reviewed: Yes Family/Social History: Unknown Family HX Smoking Status: Current Some Days Smoker Hx Alcohol Use: Yes (Glass of wine daily) Hx Substance Use: No Hx Substance Use Treatment: No Allergies/Home Meds Allergies/Adverse Reactions: Allergies No Known Allergies Allergy (Verified 08/27/17 09:11) Home Medications: Home Meds Medication Instructions Recorded Confirmed Atorvastatin Calcium [Lipitor] 80 mg PO DAILY 11/24/11 04/28/17 Metoprolol Succinate 100 mg PO DAILY 11/24/11 04/28/17 Donepezil [Aricept] 10 mg PO DAILY 04/28/17 04/28/17 Review of Systems - Physician Review All systems were reviewed & negative as marked: Yes - Review of Systems Constitutional: absent: Fevers Respiratory: absent: SOB, Cough Cardiovascular: Chest Pain (left sided ) Gastrointestinal: Abdominal Pain (left sided). absent: Vomiting Genitourinary Male: absent: Dysuria Musculoskeletal: Other (left sided groin pain) Skin: absent: Rash Neurological: absent: Dizziness Physical Exam Vital Signs Reviewed: Yes Vital Signs Pulse Resp BP Pulse Ox 08/27/17 12:26 77 134/99 H 08/27/17 11:59 74 18 139/97 H 97 08/27/17 11:46 70 16 145/98 H 98 08/27/17 11:34 73 20 159/106 H 98 08/27/17 11:27 90 202/120 H 08/27/17 11:00 70 18 172/95 H 98 08/27/17 10:30 92 H 18 187/122 H 98 08/27/17 10:00 78 18 149/92 H 97 08/27/17 09:12 95 H 19 148/98 H 92 L Appearance: Positive for: Well-Appearing, Non-Toxic, Comfortable Pain Distress: Mild Mental Status: Positive for: Alert and Oriented X 3 - Systems Exam Head: Present: Atraumatic, Normocephalic Pupils: Present: PERRL Extroacular Muscles: Present: EOMI Conjunctiva: Present: Normal Respiratory/Chest: Present: Clear to Auscultation, Good Air Exchange. No: Respiratory Distress, Accessory Muscle Use, Wheezes, Rales, Retracting, Rhonchi Cardiovascular: Present: Regular Rate and Rhythm, Normal S1, S2. No: Murmurs Abdomen: Present: Tenderness (left sided abdominal tenderness). No: Distention , Peritoneal Signs, Rebound, Guarding Lower Extremity: Present: Normal Inspection, NORMAL PULSES, Normal ROM, Neurovascularly Intact, Capillary Refill < 2 s. No: Edema, Cyanosis, Tenderness , Swelling, Erythema, Deformity Neurological: Present: GCS=15, CN II-XII Intact, Speech Normal Skin: Present: Warm, Dry, Normal Color. No: Rashes Psychiatric: Present: Alert, Oriented x 3, Normal Insight, Normal Concentration Medical Decision Making ED Course and Treatment: 08/27/17 Impression: 81 year old male with left sided abdominal tenderness complaining of left sided chest pain radiating to left groin. Plan: -- EKG -- Chest X-ray -- Labs -- Urinalysis -- Reassess and disposition Progress Notes: EKG: Ordered, reviewed, and independently interpreted the EKG. Rate : 96 BPM Rhythm : NSR Interpretation : RBBB. No ST-segment elevations or depressions, no T-wave inversions, normal intervals. 08/27/17 10:05 bedisde US shows large AAA. pt with renal insuffiency needs IV contrast. Case was discussed with Dr. Roy who is aware of plan and agrees with IV contrast. 08/27/17 10:05 Chest X-ray: Creator : Jack De Souza MD COMPARISON: 04/24/2017 FINDINGS: LUNGS: Chronic interstitial changes PLEURA: No significant pleural effusion identified, no pneumothorax apparent. CARDIOVASCULAR: Moderate cardiomegaly and aortic tortuosity. OSSEOUS STRUCTURES: No significant abnormalities. VISUALIZED UPPER ABDOMEN: Normal. OTHER FINDINGS: None. IMPRESSION: No active disease. Chronic interstitial changes 08/27/17 12:[address] Beth, from [facility], who is aware of plan and accepts transfer. Case also discussed with Dr. Cruz, ER pending, who also accepts transfer. b/p treated with labetolol and esmolol drip. 08/27/17 14:20 - Lab Interpretations Lab Results: 08/27/17 09:15 08/27/17 09:15 Lab Results 08/27/17 10:10: Urine Color Yellow, Urine Appearance Clear, Urine pH 6.5, Ur Specific [place] 1.020, Urine Protein 100 H, Urine Glucose (UA) Negative, Urine Ketones Negative, Urine Blood Small H, Urine Nitrate Negative, Urine Bilirubin Negative, Urine Urobilinogen 0.2, Ur Leukocyte Esterase Negative, Urine RBC 5 - 10, Urine WBC 0 - 2, Ur Epithelial Cells None, Amorphous Sediment Few, Urine Bacteria Mod, Fine Granular Casts 0 - 2 08/27/17 09:45: PT 14.4 H, INR 1.25 H, APTT 30.4 08/27/17 09:30: NT-Pro-B Natriuret Pep 56127 H 08/27/17 09:15: Sodium 141, Potassium 4.5, Chloride 100, Carbon Dioxide 27, Anion Gap 19, BUN 31 H, Creatinine 2.3 H, Est GFR ( Amer) 33, Est GFR ( Non-Af Amer) 28, Random Glucose 133 H, Calcium 10.0, Magnesium 2.6 H, Total Bilirubin 0.8, AST 20, ALT 24, Alkaline Phosphatase 94, Lactate Dehydrogenase 501, Total Creatine Kinase 80, Troponin I 0.03 D, Total Protein 8.1, Albumin 4.0, Globulin 4.1, Albumin/Globulin Ratio 1.0 L, Lipase 90 08/27/17 09:15: WBC 9.1 D, RBC 5.55, Hgb 11.9 L, Hct 38.0 L, MCV 68.5 L, MCH 21.4 L, MCHC 31.3, RDW 17.2 H, Plt Count 197, MPV 9.7, Gran % 82.2 H, Lymph % ( Auto) 11.2 L, [place] % (Auto) 6.1 H, Eos % (Auto) 0.2 L, Baso % (Auto) 0.3, Gran # 7.47 H, Lymph # (Auto) 1.0 L, [place] # (Auto) 0.6, Eos # (Auto) 0.0, Baso # ( Auto) 0.03 I have reviewed the lab results: Yes - RAD Interpretation Radiology Orders: 08/27/17 08:52 CHEST PORTABLE [RAD] Stat 08/27/17 09:38 ANGIOGRAPHY DISECTION PROTOCOL [CT] Stat [employer] Machine Feeder: Radiologist - EKG Interpretation Interpreted by ED Physician: Yes Type: 12 lead EKG - Medication Orders Current Medication Orders: Esmolol HCl (Brevibloc) 250 mls @ 21.038 mls/hr IV .[id number] ANOOP; 50 MCG/KG/MIN PRN Reason: Protocol Last Admin: 08/27/17 12:26 Dose: 21.038 mls/hr eMAR Start Stop Document 08/27/17 12:26 NIKOLAI (Rec: 08/27/17 12:26 NIKOLAI [id number]) Intravenous Solution Start Date 08/27/17 Start Time 12:26 MAR Pulse and Blood Pressure Document 08/27/17 12:26 NIKOLAI (Rec: 08/27/17 12:26 NIKOLAI [id number]) Pulse Pulse Rate (60-90) 77 Blood Pressure Blood Pressure (100/60-150/90) 134/99 Discontinued Medications Acetaminophen (Tylenol 325mg Tab) 975 mg PO STAT STA Stop: 08/27/17 11:21 Last Admin: 08/27/17 11:26 Dose: 975 mg MAR Pain/Vitals Document 08/27/17 11:26 NIKOLAI (Rec: 08/27/17 11:27 SHAREEA [id number]) Pain Reassessment Is This A Pain ReAssessment? No Sleep Is patient sleeping during reassessment? No Presence of Pain Presence of Pain Yes Pain Scale Used Pain Scale Used Numeric Location Intensity 5 Scale Used Numeric Re-Assess: MAR Pain/Vitals Document 08/27/17 12:26 NIKOLAI (Rec: 08/27/17 12:54 SHAREEA [id number]) Pain Reassessment Is This A Pain ReAssessment? No Sleep Is patient sleeping during reassessment? No Presence of Pain Presence of Pain Yes Pain Scale Used Pain Scale Used Numeric Location Intensity 6 Scale Used Numeric Labetalol HCl (Trandate) 20 mg IV STAT STA Stop: 08/27/17 10:44 Last Admin: 08/27/17 11:27 Dose: 20 mg eMAR Start Stop Document 08/27/17 11:27 NIKOLAI (Rec: 08/27/17 11:28 NIKOLAI [id number]) Intravenous Solution Start Date 08/27/17 Start Time 11:27 End Date 08/27/17 End time 11:32 Total Infusion Time 5 [facility] Pulse and Blood Pressure Document 08/27/17 11:27 NIKOLAI (Rec: 08/27/17 11:28 NIKOLAI [id number]) Pulse Pulse Rate (60-90) 90 Blood Pressure Blood Pressure (100/60-150/90) 202/120 Morphine Sulfate (Morphine) 2 mg IVP STAT STA Stop: 08/27/17 12:30 Last Admin: 08/27/17 12:38 Dose: 2 mg [facility] Pain Assessment Document 08/27/17 12:38 NIKOLAI (Rec: 08/27/17 12:42 NIKOLAI [id number]) Pain Reassessment Is this a pain reassessment? No Sleep Is patient sleeping during reassessment? No Presence of Pain Presence of Pain Yes Pain Scale Used Pain Scale Used Numeric Description Description Intermittent Intensity of Pain at present 5 IVP Administration Document 08/27/17 12:38 NIKOLAI (Rec: 08/27/17 12:42 NIKOLAI [id number]) Charges for Administration # of IVP Administrations 1 - Scribe Statement The provider has reviewed the documentation as recorded by the Scribe Sigrid Navarro Provider Scribe Attestation: All medical record entries made by the Ronnie were at my direction and personally dictated by me. I have reviewed the chart and agree that the record accurately reflects my personal performance of the history, physical exam, medical decision making, and the department course for this patient. I have also personally directed, reviewed, and agree with the discharge instructions and disposition. Disposition/Present on Arrival - Present on Arrival Any Indicators Present on Arrival: No History of DVT/PE: No History of Uncontrolled Diabetes: No Urinary Catheter: No History Surgical Site Infection Following: None - Disposition Have Diagnosis and Disposition been Completed?: Yes Diagnosis: Ruptured abdominal aortic aneurysm (AAA) Disposition: Transfer [facility] Disposition Time: 12:00 Condition: CRITICAL Forms: [employer] (Cuban)
[2017-08-27 09:43] LABS: TROPONIN I 0.03 ng/mL
[2017-08-27 09:51] LABS: BASO # 0.03 K/mm3 (0.0-2.0); BASO % 0.3 % (0.0-3.0); EOS % 0.2 % (1.5-5.0); GRAN # 7.47 (1.4-6.5); GRAN % 82.2 % (50.0-68.0); HEMOGLOBIN 11.9 g/dL (14.0-18.0); LYMPH % 11.2 % (22.0-35.0); MEAN CELL VOLUME 68.5 fl (80.0-105.0); MEAN CORPUSCULAR HEMOGLOBIN 21.4 pg (25.0-35.0); MEAN CORPUSCULAR HGB CONC 31.3 g/dl (31.0-37.0); MEAN PLATELET VOLUME 9.7 fl (7.0-11.0); MONO # 0.6 (0.1-0.6); MONO % 6.1 % (1.0-6.0); RBC 5.55 10^6/uL (3.5-6.1); RED CELL DISTRIBUTION WIDTH 17.2 % (11.5-14.5); WHITE BLOOD COUNT 9.1 10^3/ul (4.5-11.0)
[2017-08-27 09:59] LABS: INR 1.25 (0.93-1.08); PARTIAL THROMBOPLASTIN TIME 30.4 Seconds (25.1-36.5); PROTHROMBIN TIME 14.4 SECONDS (9.4-12.5)
--- NOTE | 2017-08-27 10:02 | RAD ---
HISTORY: cp COMPARISON: 04/24/2017 FINDINGS: LUNGS: Chronic interstitial changes PLEURA: No significant pleural effusion identified, no pneumothorax apparent. CARDIOVASCULAR: Moderate cardiomegaly and aortic tortuosity. OSSEOUS STRUCTURES: No significant abnormalities. VISUALIZED UPPER ABDOMEN: Normal. OTHER FINDINGS: None. IMPRESSION: No active disease. Chronic interstitial changes
[2017-08-27 11:03] LABS: PH,URINE 6.5 (4.7-8.0); URINE BILIRUBIN NEGATIVE (NEGATIVE); URINE BLOOD SMALL (NEGATIVE); URINE GLUCOSE (UA) NEGATIVE (NEGATIVE); URINE LEUKOCYTE ESTERASE NEGATIVE Leu/uL (NEGATIVE); URINE PROTEIN 100 mg/dL (<30 mg/dL); URINE UROBILINOGEN 0.2 E.U./dL (<1 E.U./dL)
[2017-08-27 11:05] LABS: URINE APPEARANCE CLEAR (CLEAR); URINE COLOR YELLOW (YELLOW)
[2017-08-27 11:16] LABS: URINE BACTERIA MOD (NEG); URINE WBC 0 - 2 /hpf (0-6)
[2017-08-27 11:17] LABS: URINE AMORPHOUS SEDIMENT FEW; URINE FINE GRANULAR CAST 0 - 2 /hpf (0-2)
--- NOTE | 2017-08-27 11:29 | CT ---
PROCEDURE: CT Chest, Abdomen and Pelvis with intravenous contrast HISTORY: cp abd pain COMPARISON: None. TECHNIQUE: IV dose administered: 150 cc of Omnipaque 300 Radiation dose: Total exam DLP = mGy-cm. This CT exam was performed using one or more of the following dose reduction techniques: Automated exposure control, adjustment of the mA and/or kV according to patient size, and/or use of iterative reconstruction technique. FINDINGS: CT CHEST WITH CONTRAST: LUNGS: Bilateral mild pleural thickening with right lower lung field linear fibrotic change. Small bilateral pleural effusions, left greater than right. MEDIASTINUM: Unremarkable. Normal caliber aorta and pulmonary arterial trunk. No aortic dissection. Normal size heart. LYMPH NODES: Unremarkable. PLEURA: See above. BONES: Unremarkable. OTHER FINDINGS: Extensive atherosclerotic disease of the aorta with a a roughly 7 centimeters saccular aneurysm along the ascending aortic arch. Aneurysm extends inferiorly with mass effect upon the junction of the pulmonary artery and left pulmonary artery. Abundant mural thrombus with a 4.7 centimeter ascending aortic aneurysm as well. Tortuosity of the descending aorta above the hiatus. . CT ABDOMEN AND PELVIS: LIVER: Unremarkable. No gross lesion or ductal dilatation. GALLBLADDER AND BILE DUCTS: Unremarkable. PANCREAS: Unremarkable. No gross lesion or ductal dilatation. SPLEEN: Unremarkable. ADRENALS: Unremarkable. No mass. KIDNEYS AND URETERS: Unremarkable. No hydronephrosis. No solid mass. VASCULATURE: Large infrarenal abdominal aortic aneurysm extending into the left common iliac artery measuring up to 6.3 centimeters with abundant irregular mural thrombus. Infiltration in the adjacent mesenteric soft tissues ; underlying slow leakage is not definitively excluded though active extravasation of contrast material is not observed. BOWEL: Extensive colonic diverticulosis. Left renal artery stent noted. APPENDIX: Normal appendix. PERITONEUM: Unremarkable. No free fluid. No free air. LYMPH NODES: Unremarkable. No enlarged lymph nodes. BLADDER: Unremarkable. REPRODUCTIVE: Unremarkable. BONES: No acute fracture. OTHER FINDINGS: None. IMPRESSION: Large infrarenal abdominal aortic aneurysm extending into the left common iliac artery measuring up to 6.3 centimeters with abundant irregular mural thrombus. Infiltration in the adjacent mesenteric soft tissues ; underlying slow leakage is not definitively excluded though active extravasation of contrast material is not observed. Extensive atherosclerotic disease of the aorta with a a roughly 7 centimeters saccular aneurysm along the ascending aortic arch. Aneurysm extends inferiorly with mass effect upon the junction of the pulmonary artery and left pulmonary artery. Abundant mural thrombus with a 4.7 centimeter ascending aortic aneurysm as well. Tortuosity of the descending aorta above the hiatus. Dr Jin notified by telephone at time of dictation.
[2017-08-27 12:08] VITALS: BMI 24.9
[2017-08-27 12:09] VITALS: RESP 18; O2SAT 97
[2017-08-27 12:28] VITALS: BP 134/99; PULSE 77
--- NOTE | 2017-08-27 13:54 | CARD ---
APPROVED REPORT EKG Measurement Heart [id number] <Conclusion> Normal sinus rhythm Possible Left atrial enlargement Right bundle branch block STTW changes
== END | disposition short-term general hospital (02) ==
LOC: ED 08:37
DX: I71.3 Abdominal aortic aneurysm, ruptured (principal); I11.0 Hypertensive heart disease with heart failure; I50.9 Heart failure, unspecified; E11.9 Type 2 diabetes mellitus without complications; Z86.73 Personal history of transient ischemic attack (TIA), and cerebral infarction without residual deficits; F17.210 Nicotine dependence, cigarettes, uncomplicated
CPT/HCPCS: 71045; 71275; 74175; 80053; 81001; 82550; 83615; 83690; 83735; 83880; 84484; 85025; 85610; 85730; 93005; 96374; 99285; J2270; Q9967